=== PATIENT | female | born 1940 | race Caucasian/White ===

== ENCOUNTER → 2017-11-18 | Outpatient (CLI) | payer MEDICARE, BC ==
[~2017-11-18] MED LIST: BISO10TA2 PO; CALC1TAB87 PO; CALC600T34 PO; DICL75TA PO; LATA0.002 LEFT EYE; META28.34 PO; SIMV40TA PO; TAB-TAB PO; TIMO0.5S30 LEFT EYE; WOMETAB PO; ZIAC106.25 PO; ZOCO40TA PO
[2017-11-18 10:06] LABS: AUTOMATED NEUTROPHIL # 5.8 TH/MM3 (1.8-7.7); BASOPHIL # 0.1 TH/MM3 (0-0.2); EOSINOPHIL # 0.2 TH/MM3 (0-0.4); HEMATOCRIT 42.8 % (35.0-46.0); HEMOGLOBIN 14.9 GM/DL (11.6-15.3); LYMPH % 16.9 % (9.0-44.0); LYMPHOCYTE # 1.4 TH/MM3 (1.0-4.8); MEAN CELL VOLUME 95.3 FL (80.0-100.0); MEAN CORPUSCULAR HEMOGLOBIN 33.1 PG (27.0-34.0); MEAN CORPUSCULAR HGB CONC 34.8 % (32.0-36.0); MEAN PLATELET VOLUME 9.1 FL (7.0-11.0); MONO % 9.4 % (0.0-8.0); MONOCYTE # 0.8 TH/MM3 (0-0.9); NEUT % 70.7 % (16.0-70.0); PLATELET COUNT 216 TH/MM3 (150-450); RED BLOOD COUNT 4.49 MIL/MM3 (4.00-5.30); RED CELL DISTRIBUTION WIDTH 13.2 % (11.6-17.2); WHITE BLOOD COUNT 8.3 TH/MM3 (4.0-11.0)
[2017-11-18 10:12] LABS: INTERNATIONAL NORMALIZED RATIO 1.1 RATIO; PROTHROMBIN TIME - PATIENT 10.8 SEC (9.8-11.6)
[2017-11-18 10:13] LABS: BACTERIA, URINE RARE /hpf; BILIRUBIN, URINE NEG (NEG); BLOOD, URINE NEG (NEG); GLUCOSE,URINE NEG (NEG); KETONE, URINE NEG (NEG); MUCUS URINE FEW /lpf (OCC); NITRITE,URINE NEG (NEG); SQUAMOUS EPITHELIAL CELL URINE 1 /hpf (0-5); TRANSITIONAL EPI CELLS, URINE <1 /hpf; URINE COLOR YELLOW (YELLW/STRAW); URINE LEUKOCYTE ESTERASE SMALL (NEG)
[2017-11-18 10:20] LABS: BICARBONATE 29.1 MEQ/L (21.0-32.0); CALCIUM 9.6 MG/DL (8.5-10.1); CREATININE 1.13 MG/DL (0.50-1.00)
--- NOTE | 2017-11-18 18:00 | EKG ---
Date Performed: 11/18/2017 Time Performed: 09:23:49 PTAGE: 77 years EKG: NORMAL Sinus rhythm RIGHT BUNDLE BRANCH BLOCK SECONDARY V POLARIZATION CHANGES ABNORMAL ECG Since PREVIOUS TRACING , no significant change noted PREVIOUS TRACIN07/28/2009 10.54 DOCTOR: Chantell Black Interpretating Date/Time 11/18/2017 17:58:11
== END ==
LOC: CPRE 08:57
PROVIDERS: ATTEND Orthopaedic Surgery
DX: Z01.810 Encounter for preprocedural cardiovascular examination (principal); Z01.812 Encounter for preprocedural laboratory examination; M17.11 Unilateral primary osteoarthritis, right knee; R94.31 Abnormal electrocardiogram [ECG] [EKG]
CPT/HCPCS: 36415; 80048; 81001; 85025; 85610; 87086; 93005

== ENCOUNTER → 2017-11-28 | Outpatient (CLI) | payer MEDICARE, BC ==
[~2017-11-28] MED LIST changes: +ASPI-183 PO; -CALC600T34 PO; +HYDR-3580 PO; -TAB-TAB PO; +WALKER WHEELS/F1 MIS; -ZIAC106.25 PO; -ZOCO40TA PO
[2017-11-28 13:03] LABS: BILIRUBIN, URINE NEG (NEG); BLOOD, URINE TRACE (NEG); GLUCOSE,URINE NEG (NEG); KETONE, URINE NEG (NEG); NITRITE,URINE NEG (NEG); PH, URINE 6.5 (5.0-8.5); SQUAMOUS EPITHELIAL CELL URINE 2 /hpf (0-5); URINE COLOR YELLOW (YELLW/STRAW); URINE LEUKOCYTE ESTERASE TRACE (NEG)
== END ==
LOC: CPRE 11:54
PROVIDERS: ATTEND Orthopaedic Surgery
DX: Z01.812 Encounter for preprocedural laboratory examination (principal); M17.11 Unilateral primary osteoarthritis, right knee
CPT/HCPCS: 81001

== ENCOUNTER 2017-11-29 05:30 | Inpatient (IN) | payer MEDICARE, BC ==
--- NOTE | 2017-11-23 09:18 | MH ---
cc: Buzz Champion MD DATE OF ADMISSION: 11/29/2017 ADMITTING DIAGNOSIS: Tricompartmental osteoarthritis of the right knee; pain, right knee; gait disturbance. HISTORY OF PRESENT ILLNESS: The patient is a 77-year-old white female who has had a rather lengthy history of bilateral knee pain extending back for more than 15 years when she had originally noted the gradual onset of soreness involving both knees unrelated to injury or unusual activity. On or about that time, she did undergo orthopedic evaluation and was diagnosed as having an arthritic condition, for which she was treated with cortisone injection. No further intervention was completed and over the following years, the patient experiencing a waxing and waning of pain about both knees, but did not seek any further disposition. Within the past few years, she became increasingly more symptomatic with pain and during this time, was being followed by her primary care physician who recommended an exercise program. Unfortunately, her symptoms persisted, during which time the patient was utilizing ynvo-hzm-[id number] antiinflammatory medication. She presented to the undersigned physician in February of this past year and at that time, her x-ray studies did reveal the obvious degenerative change, somewhat more pronounced about the medial compartment with near jhhg-dd-ovkj apposition associated with a varus deformity of at least 5 degrees magnitude and secondary involvement of the patellofemoral articulation. Findings and treatment options were reviewed with the patient at that time. She elected to continue with conservative management and was prescribed diclofenac 75 mg twice daily and initiated into a physical therapy program while being followed on an outpatient basis. Her medication was later changed to meloxicam because of a lightheaded sensation that was experienced with the diclofenac, and the patient completed her therapy program and thereafter, conformed to exercises as instructed. She was also encouraged to utilize Aspercreme versus Biofreeze for continued pain management. She returned to the office July describing ongoing pain involving both knees but being somewhat more pronounced on the right side. At that time, additional treatment options were reviewed including consideration for operative intervention that would involve total knee arthroplasty. Emphasis was made regarding the fact that the decision to proceed with any form of operative treatment would be left entirely to the patient's discretion. The patient continued with conservative treatment but became increasingly more symptomatic with pain involving all phases of her daily routine, for which she described considerable discomfort as related to any form of weightbearing activities and becoming somewhat unsteady with her gait requiring not only the assistance of her for support but occasional use of a cane for additional management. When seen in further disposition, her current x-ray studies revealed obvious degenerative change with near azej-ee-mcwj apposition about the medial compartment and secondary involvement of the patellofemoral articulation. Once again, findings and treatment options were reviewed. At that time, the patient felt that she had exhausted all modes of conservative treatment and given the progressive nature of her symptoms as well as her unsteadiness of gait and fear of falling, she felt that she was ready to proceed with surgery as previously discussed. In compliance with her wishes, she has presently been scheduled for admission in order that the above be accomplished. PAST MEDICAL HISTORY, HOSPITALIZATIONS, AND SURGERIES: Have included operative procedure of the right eye, patient being nonspecific in this regard, followed by bilateral cataract excision with intraocular lens implants, section x 3. Her medical illnesses include macular degeneration, hypertension, and elevated cholesterol. CURRENT MEDICATIONS: Diclofenac 75 mg twice daily, bisoprolol 10/6.25 daily, simvastatin 40 mg daily, calcium with vitamin D twice daily, Metamucil p.r.n., timolol 0.5% eyedrops twice daily, and latanoprost 0.005% 1 drop at bedtime. ALLERGIES: THE PATIENT DENIES ANY KNOWN DRUG ALLERGIES. REVIEW OF SYSTEMS: She does wear glasses. Denies headache, seizure, syncope. No sinus congestion or epistaxis. Auditory acuity intact. No tinnitus. No bleeding gums or dysphagia. Denies cough, shortness of breath, or tuberculosis. There is a positive history of pneumonia. No angina. She is medically managed for hypertension. Her appetite is good. Bowel movements are regular. No hepatitis, gallbladder disease, ulcers, or hemorrhoids. No urinary tract infection or kidney stones. No history of fractures. No psychiatric illness. Her remaining review of systems is unremarkable or noncontributory. FAMILY HISTORY: The patient has been for 17 years, this being a second marriage. Her is 77 years of age and described as being in good health. She has 3 sons, indicated to be in good health. Family history is positive for hypertension, heart disease, Alzheimer disease and lymphoma. SOCIAL HISTORY: Patient completed a high school education. She admits to a 50-year use of tobacco, presently averaging less than 1/2 pack per day. Denies ethanol consumption. PHYSICAL EXAMINATION: VITAL SIGNS: Height 5 feet 4 inches, weight 227 pounds. GENERAL: An alert, oriented and responsive 77-year-old white female who sits quietly upon the examination table. No obvious distress. HEAD, EARS, EYES, NOSE, AND THROAT: Pupils are equally round and reactive to light. Extraocular movements full. Sclerae clear. 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 Mucous membranes pink and moist. Pharynx clear. NECK: Supple. Active range of motion with no appreciable pain. Carotid pulse palpable bilaterally. Trachea midline. Thyroid without enlargement. LUNGS: Clear to auscultation and percussion. No CVA tenderness. No discomfort throughout the dorsal lumbar spine. HEART: Regular rhythm. No murmur or gallop. ABDOMEN: Soft, nontender. Bowel sounds present. PELVIC: Per primary care physician. EXTREMITIES: Right knee, no significant swelling or effusion. There is medial joint line tenderness without palpable deformity. A 5-105 degree range of motion with crepitation elicited. Varus orientation. No collateral ligamentous laxity. Apprehension and compression sign negative. Shannan test and drawer sign negative. Pivot shift and Elzbieta sign positive for medial compartment pain. Straight leg raising unremarkable at 80 degrees. 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 NEUROLOGIC: Cranial nerves 2-12 grossly intact. IMPRESSION: Tricompartmental osteoarthritis of the right knee; pain, right knee; gait disturbance. PLAN: Right total knee arthroplasty. The nature of the plan, surgical procedure, the potential complications and risks associated, the expectations of surgery, and the consent form were thoroughly reviewed with the patient in the presence of her prior to admission to the hospital. Dayana has indicated her full understanding regarding all of the above and given her consent to proceed with treatment as outlined. Medical evaluation and clearance for surgery will be completed by her primary care physician at the [facility]. MD RAFA Morrison/SB , 05:42 PM , 06:45 PM JENNIFER
[~2017-11-29] VITALS: Ht 162.6 cm; Wt 102.9 kg
[~2017-11-29 05:30] MED LIST changes: -ASPI-183 PO; -HYDR-3580 PO; -WALKER WHEELS/F1 MIS
[2017-11-29] MEDS ORDERED: FAT EMULSION 20% INJ 0 ML ONE (05:38)
[2017-11-29] MEDS ORDERED: CHLORHEXIDINE GLUCONATE 2 % 1 PACK (2 CLOTHS) TOPICAL PRN (06:00)
[2017-11-29] MEDS ORDERED: SODIUM CHLORID 0.9% 500 ML IV PRN (06:00)
[2017-11-29] MEDS ORDERED: LACTATED RINGER'S 1000 ML IV PRN (06:00)
[2017-11-29] MEDS ORDERED: METOPROLOL TARTRATE 25 MG TAB PO PRN (06:00)
[2017-11-29] MEDS ORDERED: POVIDONE IODINE 5% (ANTISEPSIS KIT) 4 APPLICATIONS EACH NARE PRN (06:00)
[2017-11-29] MEDS ORDERED: ceFAZolin 2 GM PREMIX 50 ML IV SCH (06:00)
[2017-11-29] MEDS ORDERED: POVIDONE IODINE 7.5% SCRUB 118 ML BOTTLE TOPICAL SCH (06:00)
[2017-11-29] MEDS ORDERED: MIDAZOLAM HCL 2 MG/2 ML VIAL ONE (06:09)
[2017-11-29] MEDS ORDERED: ROPIVACAINE 0.5% PF INJ 30 ML VIAL ONE (06:09)
[2017-11-29] MEDS ORDERED: ceFAZolin INJ 1,000 MG VIAL ONE (06:09)
[2017-11-29] MEDS ORDERED: TRANEXAMIC ACID 1 GM PRIOR TO PROCEDURE IV SCH ×2 (07:00)
[2017-11-29] MEDS ORDERED: HYDR-3580 PO (09:29)
[2017-11-29] MEDS ORDERED: ASPI-183 PO (09:29)
[2017-11-29] MEDS ORDERED: diphenhydrAMINE HCL 25 MG CAP PO PRN (09:30)
[2017-11-29] MEDS ORDERED: ONDANSETRON HCL 4 MG/2 ML VIAL IVP PRN (09:30)
[2017-11-29] MEDS ORDERED: MISCELLANEOUS PHARMACY INFORMATION XX ONE (09:30)
[2017-11-29] MEDS ORDERED: NALOXONE HCL 0.4 MG/ML AMP IV PUSH PRN (09:30)
[2017-11-29] MEDS ORDERED: ZOLPIDEM TARTRATE 5 MG TAB PO PRN (09:30)
[2017-11-29] MEDS ORDERED: TRANEXAMIC ACID INJ 1,000 MG in SODIUM CHLORIDE 0.9% INJ 100 ML IV SCH (09:30)
[2017-11-29] MEDS ORDERED: Post-op Orders (for Pharmacy) XX ONE (09:30)
[2017-11-29] MEDS ORDERED: ACETAMINOPHEN 325 MG TAB PO PRN (09:30)
--- NOTE | 2017-11-29 09:31 | HHI.FF ---
Face to Face Verification Diagnosis: (1) DJD (degenerative joint disease) of knee Physical Therapy Gait training Knee: Total knee, Protocol: Right, Full weight bearing Right LE Range of Motion: Active ROM Nursing Dressing Changes: Daily dressing change I have seen patient Dayana Barnett on 11/29/17. My clinical findings support the need for the requested home health care services because: Limited ability to care for self High risk of falls I certify that my clinical findings support that this patient is homebound because: Post-op weakness Unsteady gait/balance Unsafe to leave home unassisted Buzz Champion MD Nov 29, 2017 09:31
[2017-11-29] MEDS ORDERED: WALKER WHEELS/F1 MIS (09:33)
[2017-11-29] MEDS ORDERED: TRANEXAMIC ACID 1 GM POST-OP IV SCH ×2 (10:00)
[2017-11-29] MEDS: DEXT 5%-NACL 0.45% 1000 ML INJ 1,000 ML IV SCH ×2 (10:00→17:23)
[2017-11-29] MEDS: MORPHINE SULFATE 30 MG/30 ML PCA IV SCH (10:00)
--- NOTE | 2017-11-29 10:02 | RADRPT ---
EXAM DATE/TIME: 11/29/2017 09:35 [facility] COMPARISON: No previous studies available for comparison. INDICATIONS : Post op right total knee. MEDICAL HISTORY : None. SURGICAL HISTORY : None. ENCOUNTER: Initial ACUITY: 1 day PAIN SCORE: 2/10 LOCATION: Right Knee FINDINGS: Postsurgical features of right knee arthroplasty. Arthroplasty components are in anatomic alignment. No significant acute bony fracture. Immediate postsurgical soft tissue features. CONCLUSION: 1. Status post right knee arthroplasty in anatomic alignment without significant acute bony fracture. Abdelrahman Tobar MD on November 29, 2017 at 9:59 Board Certified Radiologist. This report was verified electronically.
--- NOTE | 2017-11-29 10:14 | MP ---
cc: Buzz Champion MD DATE OF OPERATION: 11/29/2017 PREOPERATIVE DIAGNOSIS: Tricompartmental osteoarthritis of the right knee, pain right knee, and gait disturbance. POSTOPERATIVE DIAGNOSIS: Tricompartmental osteoarthritis of the right knee, pain right knee, and gait disturbance. PROCEDURE: Right total knee arthroplasty. SURGEON: Buzz Champion MD ANESTHESIA: General endotracheal. INDICATIONS: A 77-year-old white female with a lengthy history of bilateral knee pain extending back at least 15 years when the patient was originally noting the onset of soreness involving both knee unrelated to injury or unusual activity. On or about that time, she did undergo orthopedic evaluation, was diagnosed as having an arthritic condition, for which she was treated with cortisone injections. No further intervention was completed. Over the following years, the patient experienced a waxing and waning of pain of both knees but did not seek any further disposition. Within the past few years, she became increasingly more symptomatic with pain, and during this time was being followed by her primary care physician who recommended an exercise program. Unfortunately, her symptoms persisted, during which time she was utilizing emio-iii-pbbijir antiinflammatory medication. She presented to the undersigned physician in February of this past year, and at that time, her x-ray studies revealed obvious degenerative changes more pronounced about the medial compartment with near mvnx-xg-cliw opposition associated with a varus deformity of at least 5 degrees magnitude and secondary involvement of the patellofemoral articulation. Findings and treatment options were reviewed at that time. The patient elected to continue with conservative management, being prescribed diclofenac 75 mg twice daily and initiated into a physical therapy program, while being followed on outpatient basis. Her medications later changed to meloxicam because of a lightheaded sensation that she was experiencing from previous medication. She completed her therapy program and thereafter, conformed her exercises as instructed and was encouraged to utilize Aspercreme versus BioFreeze for continued pain management. She returned to the office in July of this past year, describing ongoing pain about both knees, somewhat more pronounced on the right side. Additional treatment options were reviewed, including consideration for operative intervention that would involve a total knee arthroplasty. Emphasis was made regarding the fact that the decision to proceed with any form of surgery would be left entirely to the patient's discretion. The patient elected to continue with conservative treatment but became increasingly more symptomatic with pain involving all phases of her daily routine, especially related to weightbearing activities. She was experiencing unsteadiness of her gait that required both cane and her for additional support. When seen in further disposition, her current x-ray studies obvious degenerative changes with near scsd-zb-zytu opposition about the medial compartment and secondary involvement of the patellofemoral articulation. Once again, findings and treatment options were reviewed. At that time, the patient felt that she had exhausted all modes of conservative treatment and given the progressive nature of her symptoms and the unsteadiness of gait and fear of falling, she felt that she was ready to proceed with surgery as previously been discussed. In compliance with her wishes, she was scheduled for admission at this time in order that the above be accomplished. FORMAT: Following the induction of satisfactory general anesthesia by endotracheal intubation as completed per the department of anesthesia, a tourniquet was established around the proximal portion of the right lower extremity. The extremity proper was isolated with a U drape, thereafter being prepped with Betadine solution and draped into a sterile field in the routine manner. Prior to initiation of the actual procedure, the standard timeout protocol was completed. All parameters were appropriately addressed and confirmed by operating room personnel. The extremity was elevated for approximately 1 minute and the tourniquet thus inflated to 250 mmHg pressure. A sharp skin incision was initiated midline over the anterior aspect of the knee and developed through underlying subcutaneous tissue with hemostasis maintained by electrocautery. By deepening dissection, the anterior capsule was exposed, the medial capsulotomy completed, and the patella subluxed in the lateral orientation. Examination of the joint space revealed severe tricompartmental degenerative changes. The articular surface of the patella was resected. Three-hole guide was utilized for establishing post holes. Medial and lateral meniscus structures were sharply excised, as was the anterior cruciate ligament. A centering hole was placed in the distal aspect of the femur allowing positioning of the intramedullary guide. The distal femoral cutting jig was attached and the distal femur resected. AP measurement noted 65 mm sizing to be appropriate. The matching cutting block was positioned. Anterior, posterior and chamfer cuts were completed. The tibial plateau was thereafter subluxed in the anterior orientation allowing positioning of the extramedullary guide. The tibial plateau was resected and measured at 75 mm sizing determined to be satisfactory. A trial reduction followed utilizing a 65 mm anatomic femoral component. A 75 mm tibial base with a 10 mm bearing insert. The knee was readily brought to full extension. There was no laxity to varus/valgus stress at both 0 and 90 degrees flexed posture. Orientation was confirmed as appropriate with measurement of the pelvic eye through the mechanical axis of the knee. A trial reduction followed utilizing a 34 mm standard patellar button. Once again, good tracking demonstrated with no tendency toward subluxation. All trial components being removed, the remaining portion of the proximal tibia was prepared for insertion of the permanent component. The joint space was thoroughly lavaged with pulsating antibiotic solution, hemostasis being maintained by electrocautery. An autogenous bone plug was inserted into the distal femoral guide hole and thereafter, a preparation of Palacos bone cement was utilized and inserting knee components in a sequential fashion, which included a 75 mm fixed cruciate tibial plate, to which a 10 mm Vanguard tibial bearing insert was secured with locking mccarty. The 65 mm Vanguard femoral component was firmly seated onto the distal femur, excess cement being removed. The knee was brought to full extension, and thereafter, the 34 mm standard 3-post patellar button was attached and maintained in place with patellar clamp while cement hardening was completed. Final range of motion assessment noted good tracking and stability throughout the knee. Irrigation was achieved with hemostasis maintained. Autovac drain tubes were inserted through superior stab wounds. The capsule was repaired with 0 Vicryl suture. Remaining portion of the wound was closed in layers in the routine manner, skin margins being reapproximated with a running subcuticular 3-0 Vicryl suture, over which Steri-Strips were applied. Xeroform, gauze and a bulky dry sterile dressing placed. Tourniquet deflated after 48 minutes of tourniquet time. The extremity being supported in a knee splint. Anesthesia was discontinued. The patient thus transferred to a hospital bed and returned to the recovery room in satisfactory condition, having tolerated her operative procedure well. The estimated blood loss approximately 50 mL. 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 MD RAFA Morrison/GUILLERMO , 09:20 AM , 10:13 AM
[2017-11-29] MEDS ORDERED: DO NOT ADM ANY ANTICOAGULANT DRUGS PRN (10:30)
[2017-11-29] MEDS ORDERED: LIDOCAINE HCL 1% PF 5 ML SYRINGE OTHER ONE (12:00)
[2017-11-29] MEDS ORDERED: LACTATED RINGER'S 1000 ML INJ 1,000 ML IV ONE (12:00)
[2017-11-29] MEDS ORDERED: GLYCOPYRROLATE 1 MG/5 ML SYRINGE IV PUSH ONE (12:00)
[2017-11-29] MEDS ORDERED: PROPOFOL 200 MG/20 ML AMP IV ONE (12:00)
[2017-11-29] MEDS ORDERED: DEXAMETHASONE SOD PHOS 4 MG/ML VIAL IV ONE (12:00)
[2017-11-29] MEDS ORDERED: NEOSTIGMINE 5 MG/5 ML SYRINGE IV PUSH ONE (12:00)
[2017-11-29] MEDS ORDERED: ROCURONIUM INJ 50 MG/5 ML SYRINGE IV PUSH ONE (12:00)
[2017-11-29] MEDS ORDERED: ONDANSETRON HCL 4 MG/2 ML VIAL IV ONE (12:00)
--- NOTE | 2017-11-29 12:43 | HHI.PR ---
Objective Vitals Vital Signs Date Time Temp Pulse Resp B/P (MAP) Pulse Ox O2 Delivery O2 Flow Rate FiO2 11/29/17 11:00 97.7 60 16 128/58 (81) 96 Nasal Cannula 2 11/29/17 10:00 15 11/29/17 09:45 62 16 125/59 (81) 96 Nasal Cannula 2 11/29/17 09:30 65 16 122/60 (80) 96 Nasal Cannula 2 11/29/17 09:19 97.9 68 16 135/62 (86) 97 Nasal Cannula 2 I/O 11/28/17 11/28/17 11/28/17 11/29/17 11/29/17 11/29/17 07:00 15:00 23:00 07:00 15:00 23:00 Intake Total 900 ml Output Total 50 ml Balance 850 ml Intake IV Total 900 ml Output Estimated Blood Loss 50 ml Herminia Toledo MD Nov 29, 2017 12:43
--- NOTE | 2017-11-29 12:44 | PD.CONS ---
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 Patient is out of the surgery, eating her lunch doing well pain is tolerable She has a history of hypertension hyperlipidemia 3 and 2 cataract she smoked a few cigarettes a day no alcohol drug abuse, she denied significant family history Currently she denied any chest pain short of breath diarrhea, dysuria urgency frequency, orthopnea or PND Review of Systems All systems reviewed and was positive for what is mentioned in history of present illness otherwise negative Past Family Social History Allergies: Coded Allergies: No Known Allergies (Verified Allergy, Unknown, 08/11/09) Past Medical History As in HPI Past Surgical History As in HPI Family History As in HPI Social History As in HPI Physical Exam Vital Signs Vital Signs Date Time Temp Pulse Resp B/P (MAP) Pulse Ox O2 Delivery O2 Flow Rate FiO2 11/29/17 11:00 97.7 60 16 128/58 (81) 96 Nasal Cannula 2 11/29/17 10:00 15 11/29/17 09:45 62 16 125/59 (81) 96 Nasal Cannula 2 11/29/17 09:30 65 16 122/60 (80) 96 Nasal Cannula 2 11/29/17 09:19 97.9 68 16 135/62 (86) 97 Nasal Cannula 2 Physical Exam GENERAL: This is a well-nourished, well-developed patient, in no apparent distress. SKIN: No rashes, ecchymoses or lesions. Cool and dry. HEAD: Atraumatic. Normocephalic. No temporal or scalp tenderness. EYES: Pupils equal round and reactive. Extraocular motions intact. No scleral icterus. No injection or drainage. ENT: Nose without bleeding, purulent drainage or septal hematoma. Throat without erythema, tonsillar hypertrophy or exudate. Uvula midline. Airway patent. NECK: Trachea midline. No JVD or lymphadenopathy. Supple, nontender, no meningeal signs. CARDIOVASCULAR: Regular rate and rhythm without murmurs, gallops, or rubs. RESPIRATORY: Clear to auscultation. Breath sounds equal bilaterally. No wheezes , rales, or rhonchi. GASTROINTESTINAL: Abdomen soft, non-tender, nondistended. No hepato-splenomegaly , or palpable masses. No guarding. MUSCULOSKELETAL: Extremities without clubbing, cyanosis, or edema. Able to wiggle toes on both lower extremity NEUROLOGICAL: Awake and alert. Normal speech no focal neurological deficit Imaging Last Impressions Knee X-Ray 11/29/17 0923 Signed Impressions: Service Date/Time: Wednesday, November 29, 2017 09:35 - CONCLUSION: 1. Status post right knee arthroplasty in anatomic alignment without significant acute bony fracture. Abdelrahman Tobar MD Assessment and Plan Assessment and Plan 77 years old female admitted for Osteoarthritis status post right total knee arthroplasty: Postop management with pain management DVT prophylaxis per Ortho Hypertension Hyperlipidemia >> continue beta-anali, hydrochlorothiazide, statin from med rec Aspirin to be continued when okay with also DVT prophylaxis on Xarelto for also Discussed Condition With Patient Herminia Toledo MD Nov 29, 2017 12:44
[2017-11-29 13:19] VITALS: BP 127/63; PULSE 95; RESP 18; TEMP 96.5; O2SAT 97
[2017-11-29] MEDS: PCA - TOTAL MG MORPHINE DELIVERED PER SHIFT SCH ×2 (14:00→20:36)
[2017-11-29 16:00] VITALS: BP 115/62; PULSE 70; RESP 18; TEMP 98.4; O2SAT 96
[2017-11-29] MEDS: PRAVASTATIN SOD 80 MG TAB PO SCH (20:35)
[2017-11-29] MEDS: TIMOLOL MALEATE 0.5% OPHT SOLN 5 ML BTL LEFT EYE SCH (20:35)
[2017-11-29] MEDS: LATANOPROST 0.005% OPHT SOLN 2.5 ML BTL LEFT EYE SCH (20:36)
[2017-11-29 21:31] VITALS: BP 134/65; PULSE 82; RESP 17; TEMP 99.6; O2SAT 96
[2017-11-29 23:57] VITALS: BP 136/71; PULSE 80; RESP 17; TEMP 99; O2SAT 96
[2017-11-30] MEDS: DEXT 5%-NACL 0.45% 1000 ML INJ 1,000 ML IV SCH ×3 (01:23→17:23)
[2017-11-30 04:50] VITALS: BP 136/56; PULSE 80; RESP 17; TEMP 98.9; O2SAT 97
[2017-11-30 05:25] LABS: HEMATOCRIT 36.8 % (35.0-46.0); HEMOGLOBIN 12.6 GM/DL (11.6-15.3)
[2017-11-30] MEDS: PCA - TOTAL MG MORPHINE DELIVERED PER SHIFT SCH ×3 (05:50→22:00)
[2017-11-30 08:00] VITALS: BP 126/57; PULSE 80; RESP 18; TEMP 97.2; O2SAT 95
[2017-11-30] MEDS: RIVAROXABAN 10 MG TAB PO SCH (08:06)
[2017-11-30] MEDS: TIMOLOL MALEATE 0.5% OPHT SOLN 5 ML BTL LEFT EYE SCH ×2 (08:06→21:00)
[2017-11-30] MEDS: BISOPROLOL PO SCH (08:07)
[2017-11-30] MEDS: HYDROCHLOROTHIAZIDE PO SCH (08:07)
[2017-11-30] MEDS: MORPHINE SULFATE 30 MG/30 ML PCA IV SCH (08:17)
[2017-11-30] MEDS ORDERED: HYDROCHLOROTHIAZIDE PO SCH (09:00)
[2017-11-30] MEDS ORDERED: BISOPROLOL PO SCH (09:00)
[2017-11-30 12:00] VITALS: BP 110/58; PULSE 69; RESP 18; TEMP 98.7; O2SAT 97
[2017-11-30 16:00] VITALS: BP 123/51; PULSE 76; RESP 18; TEMP 99; O2SAT 94
[2017-11-30 20:55] VITALS: BP 125/56; PULSE 84; RESP 17; TEMP 99.3; O2SAT 94
[2017-11-30] MEDS: LATANOPROST 0.005% OPHT SOLN 2.5 ML BTL LEFT EYE SCH (21:00)
[2017-11-30] MEDS: DOCUSATE SODIUM 100 MG CAP PO PRN (22:04)
[2017-11-30] MEDS: PRAVASTATIN SOD 80 MG TAB PO SCH (22:04)
[2017-11-30] MEDS: ACETAMINOPHEN/HYDROcodone 325 MG/5 MG TAB PO PRN (22:04)
[2017-12-01 00:20] VITALS: BP 116/55; PULSE 81; RESP 17; TEMP 99.4; O2SAT 93
[2017-12-01] MEDS: DEXT 5%-NACL 0.45% 1000 ML INJ 1,000 ML IV SCH ×4 (01:23→20:57)
[2017-12-01 03:50] VITALS: BP 124/56; PULSE 79; RESP 17; TEMP 98.6; O2SAT 94
[2017-12-01 04:47] LABS: AUTOMATED NEUTROPHIL # 6.9 TH/MM3 (1.8-7.7); BASOPHIL # 0.1 TH/MM3 (0-0.2); BASOPHIL % 0.9 % (0.0-2.0); EOSINOPHIL % 0.4 % (0.0-4.0); HEMATOCRIT 33.6 % (35.0-46.0); HEMOGLOBIN 11.6 GM/DL (11.6-15.3); LYMPH % 16.7 % (9.0-44.0); LYMPHOCYTE # 1.7 TH/MM3 (1.0-4.8); MEAN CELL VOLUME 95.6 FL (80.0-100.0); MEAN CORPUSCULAR HGB CONC 34.5 % (32.0-36.0); MEAN PLATELET VOLUME 8.6 FL (7.0-11.0); MONO % 12.4 % (0.0-8.0); MONOCYTE # 1.2 TH/MM3 (0-0.9); NEUT % 69.6 % (16.0-70.0); PLATELET COUNT 185 TH/MM3 (150-450); RED BLOOD COUNT 3.51 MIL/MM3 (4.00-5.30); RED CELL DISTRIBUTION WIDTH 12.9 % (11.6-17.2); WHITE BLOOD COUNT 9.9 TH/MM3 (4.0-11.0)
[2017-12-01 05:11] LABS: BICARBONATE 28.6 MEQ/L (21.0-32.0); CALCIUM 8.4 MG/DL (8.5-10.1); CREATININE 1.02 MG/DL (0.50-1.00)
[2017-12-01] MEDS: ACETAMINOPHEN/HYDROcodone 325 MG/5 MG TAB PO PRN ×3 (05:47→17:40)
[2017-12-01] MEDS: PCA - TOTAL MG MORPHINE DELIVERED PER SHIFT SCH (06:00)
[2017-12-01] MEDS: MORPHINE SULFATE 30 MG/30 ML PCA IV SCH (06:27)
[2017-12-01 08:00] VITALS: BP 127/57; PULSE 89; RESP 18; TEMP 98.3; O2SAT 93
[2017-12-01] MEDS: RIVAROXABAN 10 MG TAB PO SCH (08:25)
[2017-12-01] MEDS: DOCUSATE SODIUM 100 MG CAP PO PRN (08:25)
[2017-12-01] MEDS: TIMOLOL MALEATE 0.5% OPHT SOLN 5 ML BTL LEFT EYE SCH ×2 (08:26→20:57)
[2017-12-01] MEDS: BISOPROLOL PO SCH (08:28)
[2017-12-01] MEDS: HYDROCHLOROTHIAZIDE PO SCH (08:28)
[2017-12-01 11:36] VITALS: BP 106/50; PULSE 71; RESP 18; TEMP 98.5; O2SAT 95
[2017-12-01 14:41] VITALS: BP 140/66; PULSE 77; RESP 18; TEMP 96; O2SAT 98
--- NOTE | 2017-12-01 16:58 | HHI.PR ---
Subjective Remarks Patient stated she had pain last night at this better now Afebrile no acute complain now Objective Vitals Vital Signs Date Time Temp Pulse Resp B/P (MAP) Pulse Ox O2 Delivery O2 Flow Rate FiO2 12/01/17 14:41 96.0 77 18 140/66 (90) 98 12/01/17 12:52 18 12/01/17 11:36 98.5 71 18 106/50 (68) 95 12/01/17 08:00 98.3 89 18 127/57 (80) 93 12/01/17 06:58 18 12/01/17 06:27 18 12/01/17 06:00 18 12/01/17 03:50 98.6 79 17 124/56 (78) 94 12/01/17 00:20 99.4 81 17 116/55 (75) 93 11/30/17 23:24 Room Air 11/30/17 22:00 18 11/30/17 20:55 99.3 84 17 125/56 (79) 94 I/O 11/30/17 11/30/17 11/30/17 12/01/17 12/01/17 12/01/17 07:00 15:00 23:00 07:00 15:00 23:00 Intake Total 240 ml 960 ml 640 ml 960 ml Output Total 30 ml 150 ml 30 ml Balance 210 ml 960 ml -150 ml 610 ml 960 ml Intake Oral 240 ml 960 ml 640 ml 960 ml Output Drainage Total 30 ml 150 ml 30 ml # Voids 0 3 2 3 # Bowel Movements 0 0 0 0 Result Diagram: 12/01/17 0422 12/01/17 0422 Objective Remarks GENERAL: This is a well-nourished, well-developed patient, in no apparent distress. CARDIOVASCULAR: Regular rate and rhythm without murmurs, gallops, or rubs. RESPIRATORY: Clear to auscultation. Breath sounds equal bilaterally. No wheezes , rales, or rhonchi. GASTROINTESTINAL: Abdomen soft, non-tender, nondistended. Normal active bowel sounds MUSCULOSKELETAL: Extremities without clubbing, cyanosis, or edema. NEURO: Alert & Oriented x4 to person, place, time, situation. Moves all ext x4 A/P Assessment and Plan 77 years old female admitted for Osteoarthritis status post right total knee arthroplasty: Postop management with pain management DVT prophylaxis per Ortho Hypertension Hyperlipidemia >> continue beta-anali, hydrochlorothiazide, statin from med rec Aspirin to be continued when okay with also DVT prophylaxis on Xarelto for also 12/01: Increased creatinine , possible CKD, versus MESERET, repeat BMP in a.m. continue hydration and avoid nephrotoxins Continue pain management monitor temperature, follow with, Ortho Herminia Toledo MD Dec 01, 2017 16:58
[2017-12-01 20:00] VITALS: BP 117/58; PULSE 74; RESP 15; TEMP 100.1; O2SAT 96
[2017-12-01] MEDS: LATANOPROST 0.005% OPHT SOLN 2.5 ML BTL LEFT EYE SCH (20:57)
[2017-12-01] MEDS: PRAVASTATIN SOD 80 MG TAB PO SCH (20:57)
[2017-12-01] MEDS: LACTULOSE SYRUP 20 GM/30 ML CUP PO PRN (20:57)
[2017-12-02] VITALS: BP 118/59; PULSE 66; RESP 18; TEMP 97.1; O2SAT 94
--- NOTE | 2017-12-02 07:01 | MD ---
cc: Buzz Champion MD [facility] DATE OF DISCHARGE: 12/02/2017 ADMITTING DIAGNOSIS: Tricompartmental osteoarthritis of the right knee, pain right knee and gait disturbance. DISCHARGE DIAGNOSIS: Tricompartmental osteoarthritis of the right knee, pain right knee and gait disturbance. HISTORY: A 77-year-old white female with a lengthy history of bilateral knee pain extending back for more than 15 years when she had originally noted the gradual onset of soreness involving both knees unrelated to injury or unusual activity. On or about that time, she did undergo orthopedic evaluation and was diagnosed as having an arthritic condition for which she was treated with cortisone injections. No further intervention was completed and over the following years, the patient experienced a waxing and waning pain about both knees, but did not seek any further disposition. Within the past few years, she became increasingly more symptomatic with pain and during this time was being followed by her primary care physician who recommended an exercise program. Unfortunately, her symptoms persisted during which time the patient was utilizing [id number] anti-inflammatory medication. She presented to the undersigned physician in February of this past year and at that time her x-ray studies revealed obvious degenerative change somewhat more pronounced about the medial compartment with near [id number] apposition associated with a varus deformity of at least 5 degrees magnitude and secondary involvement of the patellofemoral articulation. Findings and treatment options were reviewed with the patient at that time, she elected to continue with conservative management and was prescribed Diclofenac 75 mg twice daily and initiated into a physical therapy program while being followed on an outpatient basis. Her medication was later changed to meloxicam because of a lightheaded sensation. She completed her therapy program and thereafter conformed to exercises as instructed. She was also encouraged to utilize Aspercreme versus Biofreeze for continued pain management. She returned to the office in July describing ongoing pain involving both knees being more pronounced about the right side. At that time, additional treatment options were reviewed including consideration for operative intervention that would involve a total knee arthroplasty. Emphasis was made regarding the fact that the decision to proceed with any form of operative treatment would be left entirely to the patient's discretion. The patient continued with conservative management while becoming increasingly more symptomatic with pain involving all phases of her daily routine, for which she described considerable difficulty, conforming to any weight-bearing activities becoming somewhat unsteady with her gait requiring not only the assistance of her for support, but occasional use of a cane as an additional source of management. When seen in further disposition, her current x-ray studies revealed obvious degenerative change with near [id number] apposition about the medial compartment and secondary involvement of the patellofemoral articulation. Once again, findings and treatment options were reviewed. At that time, the patient felt that she had exhausted all modes of conservative treatment and given the progressive nature of her symptoms and her unsteadiness of gait and a fear of falling, she felt she was ready to proceed with surgery as previously discussed. In compliance with her wishes, she was scheduled for admission at this time in order that the above be accomplished. Her physical examination at the time of admission revealed no significant swelling or effusion about the right knee. There was medial joint line tenderness without palpable deformity at 5-105 degree range of motion with crepitation elicited varus orientation. No collateral ligamentous laxity. Apprehension and compression sign negative. Shannan test and drawer sign negative. Pivot shift and Elzbieta sign positive for medial compartment pain. Straight leg raising unremarkable at 80 degrees. 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 HOSPITAL COURSE: Prior to admission to the hospital, the patient had undergone medical evaluation and clearance for surgery as completed by her primary care physician at the [facility]. She was taken to the operating room 11/29/2017 and on that date underwent a right total knee arthroplasty completed in an uncomplicated manner. The patient was noted to have tolerated her operative procedure well. Her postoperative course stable thereafter. Hemoglobin and hematocrit assessment on the second postoperative day was 11.6 and 33.6 respectively. The patient was progressively mobilized under the guidance of physical therapy being permitted weightbearing to tolerance about the right lower extremity. Followup examination of her surgical wound noted to be intact, healing favorably, no evidence of infection. MEDICAL FOLLOWUP: Per the hospitalist service. DVT prophylaxis initiated. Clinical Product Manager consulted to assist with discharge planning. The patient had indicated her willingness to be transferred to a rehab facility for continued mobilization. Plans were finalized in this regard and pending medical clearance, she was scheduled for transfer on the third postoperative day at which time she was noted to be making slow but steady progress with regard to her rehabilitation program. She was scheduled to be seen in office followup in approximately 4 weeks. CONDITION AT THE TIME OF DISCHARGE: Stable. PROGNOSIS: Favorable. DISCHARGE MEDICATIONS: Included hydrocodone #60; aspirin 325 mg 1 tab twice daily for 3 weeks, #40. MD RAFA Morrison/DL , 06:21 AM , 07:00 AM
[2017-12-02 08:00] VITALS: BP 128/54; PULSE 74; RESP 16; TEMP 96.7; O2SAT 94
[2017-12-02] MEDS: LACTULOSE SYRUP 20 GM/30 ML CUP PO PRN (08:36)
[2017-12-02] MEDS: HYDROCHLOROTHIAZIDE PO SCH (08:37)
[2017-12-02] MEDS: RIVAROXABAN 10 MG TAB PO SCH (08:37)
[2017-12-02] MEDS: BISOPROLOL PO SCH (08:37)
[2017-12-02] MEDS: ACETAMINOPHEN/HYDROcodone 325 MG/5 MG TAB PO PRN ×2 (08:37→14:04)
[2017-12-02] MEDS: DEXT 5%-NACL 0.45% 1000 ML INJ 1,000 ML IV SCH (08:37)
[2017-12-02] MEDS: TIMOLOL MALEATE 0.5% OPHT SOLN 5 ML BTL LEFT EYE SCH (08:39)
[2017-12-02] MEDS ORDERED: BISACODYL 10 MG SUPP RECTAL ONE (10:00)
--- NOTE | 2017-12-02 11:21 | HHI.PR ---
Subjective Remarks stable , in nad plan for dc today Objective Vitals Vital Signs Date Time Temp Pulse Resp B/P (MAP) Pulse Ox O2 Delivery O2 Flow Rate FiO2 12/02/17 09:41 18 12/02/17 00:00 97.1 66 18 118/59 (78) 94 12/01/17 23:04 Room Air 12/01/17 20:00 100.1 74 15 117/58 (77) 96 12/01/17 14:41 96.0 77 18 140/66 (90) 98 12/01/17 12:52 18 12/01/17 11:36 98.5 71 18 106/50 (68) 95 I/O 12/01/17 12/01/17 12/01/17 12/02/17 12/02/17 12/02/17 07:00 15:00 23:00 07:00 15:00 23:00 Intake Total 640 ml 960 ml 360 ml Output Total 30 ml Balance 610 ml 960 ml 360 ml Intake Oral 640 ml 960 ml 360 ml Output Drainage Total 30 ml # Voids 2 3 1 1 # Bowel Movements 0 0 0 Result Diagram: 12/01/17 [id number]/[id number] Objective Remarks GENERAL: This is a well-nourished, well-developed patient, in no apparent distress. CARDIOVASCULAR: Regular rate and rhythm without murmurs, gallops, or rubs. RESPIRATORY: Clear to auscultation. Breath sounds equal bilaterally. No wheezes , rales, or rhonchi. GASTROINTESTINAL: Abdomen soft, non-tender, nondistended. Normal active bowel sounds MUSCULOSKELETAL: Extremities without clubbing, cyanosis, or edema. NEURO: Alert & Oriented x4 to person, place, time, situation. Moves all ext x4 A/P Assessment and Plan 77 years old female admitted for Osteoarthritis status post right total knee arthroplasty: Postop management with pain management DVT prophylaxis per Ortho Hypertension Hyperlipidemia >> continue beta-anali, hydrochlorothiazide, statin from med rec Aspirin to be continued when okay with also DVT prophylaxis on Xarelto for also 12/01: Increased creatinine , possible CKD, versus MESERET, repeat BMP in a.m. continue hydration and avoid nephrotoxins Continue pain management monitor temperature, follow with, Ortho 12/02: stable medically for dc and ff with pcp outpt Herminia Toledo MD Dec 02, 2017 11:21
[2017-12-02 12:00] VITALS: BP 116/50; PULSE 67; RESP 16; TEMP 97.9; O2SAT 94
[2017-12-02 15:04] VITALS: RESP 18
== END 2017-12-02 15:41 | DRG 470 ==
LOC: HSDI 05:30 → N06B 13:24
PROVIDERS: ADMIT Orthopaedic Surgery; ATTEND Orthopaedic Surgery
PROC: 0SRC0J9 Replacement of Right Knee Joint with Synthetic Substitute, Cemented, Open Approach (ICD-10-PCS; principal; 2017-11-29 06:44)
DX: M17.11 Unilateral primary osteoarthritis, right knee (principal); I10 Essential (primary) hypertension; E78.5 Hyperlipidemia, unspecified; G89.29 Other chronic pain; R26.81 Unsteadiness on feet; N28.9 Disorder of kidney and ureter, unspecified; H35.30 Unspecified macular degeneration; F17.210 Nicotine dependence, cigarettes, uncomplicated; Z01.812 Encounter for preprocedural laboratory examination
CPT/HCPCS: 36430; 73560; 80048; 81001; 85014; 85018; 85025; 86850; 86900; 86901; 88305; C1776; J0690; J1100; J2250; J2270; J2405; J2710; J2795; J3010; J7120; L1830

== ENCOUNTER → 2018-01-11 | Outpatient (CLI) | payer MEDICARE, BC ==
[~2018-01-11] MED LIST changes: +ASPI-183 PO; +CIPR250T52 PO; +CULT10CA4 PO; +HYDR-3516 PO; +HYDR-3580 PO; +WALKER WHEELS/F1 MIS; +WHEEMIS3; +ZANA2CAP PO
[2018-01-11 09:59] LABS: AUTOMATED NEUTROPHIL # 5.8 TH/MM3 (1.8-7.7); BASOPHIL # 0.1 TH/MM3 (0-0.2); BASOPHIL % 0.8 % (0.0-2.0); EOSINOPHIL # 0.2 TH/MM3 (0-0.4); EOSINOPHIL % 2.2 % (0.0-4.0); HEMATOCRIT 37.5 % (35.0-46.0); HEMOGLOBIN 12.7 GM/DL (11.6-15.3); LYMPH % 18.8 % (9.0-44.0); LYMPHOCYTE # 1.5 TH/MM3 (1.0-4.8); MEAN CELL VOLUME 95.6 FL (80.0-100.0); MEAN CORPUSCULAR HEMOGLOBIN 32.3 PG (27.0-34.0); MEAN CORPUSCULAR HGB CONC 33.8 % (32.0-36.0); MEAN PLATELET VOLUME 9.3 FL (7.0-11.0); MONO % 7.8 % (0.0-8.0); MONOCYTE # 0.6 TH/MM3 (0-0.9); NEUT % 70.4 % (16.0-70.0); PLATELET COUNT 312 TH/MM3 (150-450); RED BLOOD COUNT 3.93 MIL/MM3 (4.00-5.30); RED CELL DISTRIBUTION WIDTH 13.4 % (11.6-17.2); WHITE BLOOD COUNT 8.2 TH/MM3 (4.0-11.0)
[2018-01-11 10:09] LABS: INTERNATIONAL NORMALIZED RATIO 1.1 RATIO; PROTHROMBIN TIME - PATIENT 11.4 SEC (9.8-11.6)
[2018-01-11 10:49] LABS: ALBUMIN 2.9 GM/DL (3.4-5.0); AST (GOT) 20 U/L (15-37); BICARBONATE 32.1 MEQ/L (21.0-32.0); BLOOD UREA NITROGEN 30 MG/DL (7-18); CALCIUM 8.8 MG/DL (8.5-10.1); CHLORIDE 104 MEQ/L (98-107); CREATININE 1.27 MG/DL (0.50-1.00); GLOMERULAR FILTRATION RATE 41 ML/MIN (>89); GLUCOSE,FASTING 108 MG/DL (74-99); SODIUM (NA) 143 MEQ/L (136-145)
[2018-01-11 10:51] LABS: ALT (GPT) 15 U/L (10-53)
[2018-01-11 10:54] LABS: ALKALINE PHOSPHATASE 83 U/L (45-117); TOTAL BILIRUBIN ADULT 0.8 MG/DL (0.2-1.0); TOTAL PROTEIN 6.2 GM/DL (6.4-8.2)
[2018-01-11 11:06] LABS: BACTERIA, URINE OCC /hpf; BILIRUBIN, URINE NEG (NEG); BLOOD, URINE NEG (NEG); GLUCOSE,URINE NEG (NEG); KETONE, URINE NEG (NEG); MUCUS URINE FEW /lpf (OCC); NITRITE,URINE NEG (NEG); PH, URINE 6.5 (5.0-8.5); SQUAMOUS EPITHELIAL CELL URINE 4 /hpf (0-5); URINE COLOR YELLOW (YELLW/STRAW); URINE LEUKOCYTE ESTERASE SMALL (NEG)
== END ==
LOC: CPRE 09:00
PROVIDERS: ATTEND Neurological Surgery
DX: Z01.812 Encounter for preprocedural laboratory examination (principal); Z01.818 Encounter for other preprocedural examination; T14.8XXA Other injury of unspecified body region, initial encounter; B95.2 Enterococcus as the cause of diseases classified elsewhere; B96.20 Unspecified Escherichia coli [E. coli] as the cause of diseases classified elsewhere; R82.90 Unspecified abnormal findings in urine; X58.XXXA Exposure to other specified factors, initial encounter
CPT/HCPCS: 36415; 80053; 81001; 85025; 85610; 85730; 87077; 87086; 87186; 87640; 87641

== ENCOUNTER 2018-01-18 06:28 | Inpatient (IN) | payer MEDICARE, BC ==
[~2018-01-18] VITALS: Ht 162.6 cm; Wt 103.9 kg
[~2018-01-18 06:28] MED LIST changes: -CIPR250T52 PO; -CULT10CA4 PO; -HYDR-3516 PO; -HYDR-3580 PO; -ZANA2CAP PO
[2018-01-18] MEDS ORDERED: THROMBIN (TOPICAL) 5,000 UNIT VIAL ONE ×2 (07:16→11:12)
[2018-01-18] MEDS ORDERED: GENTAMICIN SULFATE 80 MG/2 ML VIAL ONE (07:17)
[2018-01-18] MEDS ORDERED: GELFOAM SIZE 100 ONE (07:17)
[2018-01-18] MEDS ORDERED: CHLORHEXIDINE GLUCONATE 2 % 1 PACK (2 CLOTHS) TOPICAL PRN (07:30)
[2018-01-18] MEDS ORDERED: POVIDONE IODINE 5% (ANTISEPSIS KIT) 4 APPLICATIONS EACH NARE PRN (07:30)
[2018-01-18] MEDS ORDERED: METOPROLOL TARTRATE 25 MG TAB PO PRN (07:30)
[2018-01-18] MEDS ORDERED: VANCOMYCIN 1 GM/200 ML PREMIX ON-CALL IV SCH (07:30)
[2018-01-18] MEDS ORDERED: SODIUM CHLORID 0.9% 500 ML IV PRN (07:30)
[2018-01-18] MEDS ORDERED: LACTATED RINGER'S 1000 ML IV PRN (07:30)
[2018-01-18] MEDS ORDERED: VANCOMYCIN HCL 1000 MG VIAL ONE (07:42)
[2018-01-18] MEDS ORDERED: SODIUM CHLOR 0.9% 250 ML INJ 250 ML ONE (07:42)
[2018-01-18] MEDS ORDERED: CIPR250T52 PO (07:50)
[2018-01-18] MEDS ORDERED: CULT10CA4 PO (07:50)
[2018-01-18] MEDS ORDERED: ZANA2CAP PO (07:50)
[2018-01-18 07:56] LABS: BILIRUBIN, URINE NEG (NEG); BLOOD, URINE NEG (NEG); CALCIUM OXALATE CRYSTALS,URINE RARE /hpf; GLUCOSE,URINE NEG (NEG); KETONE, URINE NEG (NEG); MUCUS URINE FEW /lpf (OCC); NITRITE,URINE NEG (NEG); PH, URINE 6.5 (5.0-8.5); SQUAMOUS EPITHELIAL CELL URINE 5 /hpf (0-5); URINE COLOR YELLOW (YELLW/STRAW); URINE LEUKOCYTE ESTERASE SMALL (NEG)
[2018-01-18] MEDS: SODIUM CHLOR 0.9% 1000 ML INJ 1,000 ML IV SCH ×3 (08:00→19:49)
[2018-01-18] MEDS ORDERED: ceFAZolin 2 GM PREMIX 50 ML ONE (08:42)
[2018-01-18] MEDS ORDERED: ARTIFICIAL TEARS OPTH OINT 3.5 APPLIC/3.5 GM TUBO ONE (08:43)
[2018-01-18] MEDS ORDERED: POTASSIUM CHLOR 20 MEQ PREMIX 100 ML ONE (09:15)
[2018-01-18] MEDS ORDERED: ACETAMINOPHEN 325 MG TAB PO PRN (10:00)
[2018-01-18] MEDS ORDERED: MENTHOL LOZENGE BUCCAL PRN (10:00)
[2018-01-18] MEDS ORDERED: MORPHINE SULFATE 4 MG/ML INJ IV PUSH PRN ×2 (10:00)
[2018-01-18] MEDS ORDERED: cloNIDine HCL 0.1 MG TAB PO/NG PRN (10:00)
[2018-01-18] MEDS ORDERED: CYCLOBENZAPRINE HCL 10 MG TAB PO PRN (10:00)
[2018-01-18] MEDS ORDERED: PSYLLIUM HUSK SF 3.4 GM in 5.8 GM PKT PO PRN (10:00)
[2018-01-18] MEDS ORDERED: DEXTROSE 50% IN WATER 50 ML VIAL(D50) IV PUSH PRN (10:00)
[2018-01-18] MEDS ORDERED: ONDANSETRON HCL 4 MG/2 ML VIAL IV PRN (10:00)
[2018-01-18] MEDS ORDERED: ACETAMINOPHEN/HYDROcodone 325 MG/10 MG TAB PO PRN ×2 (10:00)
[2018-01-18] MEDS ORDERED: RESP: ALBUTEROL 2.5 MG/3 ML NEB (PRN) INH (10:00)
[2018-01-18] MEDS: DEXAMETHASONE SOD PHOS 4 MG/ML VIAL IV PUSH SCH ×3 (10:00→21:18)
[2018-01-18] MEDS ORDERED: GLUCAGON 1 MG/ML VIAL OTHER PRN (10:00)
[2018-01-18] MEDS ORDERED: BISACODYL 10 MG SUPP RECTAL PRN (10:00)
[2018-01-18] MEDS ORDERED: MAGNESIUM HYDROXIDE SUSP 30 ML CUP PO PRN (10:00)
[2018-01-18] MEDS ORDERED: MIDAZOLAM HCL 2 MG/2 ML VIAL ONE (10:45)
[2018-01-18] MEDS ORDERED: KETAMINE HCL 500 MG/10 ML VIAL ONE (10:45)
[2018-01-18] MEDS ORDERED: PROPOFOL 500 MG/50 ML INJ 100 ML ONE (10:45)
[2018-01-18] MEDS ORDERED: ceFAZolin INJ 1,000 MG VIAL IV ONE (11:04)
[2018-01-18] MEDS ORDERED: GELATIN POWDER 1 GM PACKET ONE (11:12)
[2018-01-18] MEDS ORDERED: ONDANSETRON HCL 4 MG/2 ML VIAL IV ONE (12:00)
[2018-01-18] MEDS ORDERED: PHENYLEPH/NS 1000 MCG/10 ML SYR IV ONE (12:00)
[2018-01-18] MEDS ORDERED: LIDOCAINE HCL 1% PF 5 ML SYRINGE OTHER ONE (12:00)
[2018-01-18] MEDS ORDERED: DEXAMETHASONE SOD PHOS 4 MG/ML VIAL IV ONE (12:00)
[2018-01-18] MEDS ORDERED: ePHEDrine/NS 25 MG/5 ML SYRINGE IV ONE (12:00)
[2018-01-18] MEDS ORDERED: SODIUM CHLORID 0.9% 500 ML INJ 500 ML IV ONE (12:00)
[2018-01-18] MEDS ORDERED: LACTATED RINGER'S 1000 ML INJ 2,000 ML IV ONE (12:00)
[2018-01-18] MEDS ORDERED: PHENYLEPHRINE HCL 10 MG/ML VIAL IV ONE (12:00)
[2018-01-18] MEDS ORDERED: ROCURONIUM INJ 50 MG/5 ML SYRINGE IV PUSH ONE (12:00)
[2018-01-18] MEDS ORDERED: PROPOFOL 200 MG/20 ML AMP IV ONE (12:00)
[2018-01-18] MEDS ORDERED: DO NOT ADM ANY ANTICOAGULANT DRUGS PRN (13:55)
[2018-01-18] MEDS ORDERED: ceFAZolin 2 GM PREMIX 50 ML IV SCH ×2 (14:00→18:00)
--- NOTE | 2018-01-18 14:09 | RADRPT ---
EXAM DATE/TIME: 01/18/2018 10:00 [place] COMPARISON: No previous studies available for comparison. INDICATIONS : C3-C5 ACDF. Neck pain. MEDICAL HISTORY : None. SURGICAL HISTORY : None. ENCOUNTER: Initial ACUITY: 1 day PAIN SCORE: Non-responsive. LOCATION: Bilateral cspine FINDINGS: Status post anterior cervical fusion from C3-C5.. There is good alignment of the fusion. CONCLUSION: Good position and alignment on this postoperative study. Damian Han MD on January 18, 2018 at 14:07 Board Certified Radiologist. This report was verified electronically.
--- NOTE | 2018-01-18 15:13 | PD.CONS ---
[facility] Service Critical Care Medicine Consult Requested By Dr. Coles Reason for Consult medical management Primary Care Physician Antione Parr MD History of Present Illness 77-year-old female with severe degenerative changes of cervical spine at C3-C4 level with severe spinal stenosis with appropriate spinal cord compression/ central cord syndrome/cervical myelopathy who underwent a C4 corpectomy with C3- C5 interbody arthrodesis using peek cage with autologous bone graft/ACDF under general anesthesia by Dr. Coles on 01/18/18, received 2 L crystalloid intraoperatively. Patient tolerated procedure well and was subsequently extubated and transferred to PACU. Critical care consult was requested for medical management by Dr. Coles. When I evaluated patient and back issues resting comfortably not in any acute distress. History was obtained by reviewing records and discussion with PACU nursing staff. Review of Systems ROS Limitations: Clinical Condition (Patient drowsy following anesthesia) Past Family Social History Allergies: Coded Allergies: No Known Allergies (Verified Allergy, Unknown, 01/11/18) Past Medical History Hypertension, hyperlipidemia, DVT, osteoarthritis, anxiety, depression, arthritis, melanoma of skin Past Surgical History Cataract surgery, 3 C-sections, melanoma removal, status post right total knee arthroplasty in November 2017 Reported Medications Bisoprolol/HCTZ 10/6.25 mg daily, diclofenac sodium 75 mg delayed release, meloxicam 15 mg, simvastatin 40 mg p.o. daily, Bactrim 800/160 twice daily Active Ordered Medications Current Medications Thrombin (Thrombin Top Soln) 10,000 units STK-MED ONCE .ROUTE Last administered on 01/18/18at 10:30; Start 01/18/18 at 07:16; Stop 01/18/18 at 07:17; Status DC Gelatin (Gelfoam 100 Top) 1 foam STK-MED ONCE .ROUTE Last administered on at 10:30; Start 01/18/18 at 07:17; Stop 01/18/18 at 07:18; Status DC Gentamicin Sulfate (Gentamicin Inj) 240 mg STK-MED ONCE .ROUTE Last administered on 01/18/18at 10:30; Start 01/18/18 at 07:17; Stop 01/18/18 at 07:18; Status DC Lactated Ringer's 1,000 ml @ 30 mls/hr Q24H PRN IV SEE LABEL COMMENTS Last administered on 01/18/18at 07:54; Start 01/18/18 at 07:30; Stop 01/21/18 at 07:29 Sodium Chloride 500 ml @ 30 mls/hr [id number] PRN IV SEE LABEL COMMENTS; Start 01/18/18 at 07:30; Stop 01/21/18 at 07:29 Metoprolol Tartrate (Lopressor) 25 mg LAW LIBRARIAN PRN PO SEE LABEL COMMENTS; Start 01/18/18 at 07:30; Stop 01/21/18 at 07:29 Povidone Iodine (Betadine 5% Antisepsis Kit) 1 applic LAW LIBRARIAN PRN EACH NARE SEE LABEL COMMENTS; Start 01/18/18 at 07:30; Stop 01/21/18 at 07:29 Chlorhexidine Gluconate (Chlorhexidine 2% Cloth) 3 pack LAW LIBRARIAN PRN TOPICAL SEE LABEL COMMENTS Last administered on 01/18/18at 07:00; Start 01/18/18 at 07:30; Stop 01/21/18 at 07:29 Vancomycin/Sodium Chloride 200 ml @ 200 mls/hr LAW LIBRARIAN IV Last administered on 01/18/18at 07:56; Start 01/18/18 at 07:30; Stop 01/21/18 at 07:29 Sodium Chloride 1,000 ml @ 30 mls/hr Q24H IV ; Start 01/18/18 at 08:00 Sodium Chloride 250 ml @ As Directed STK-MED ONCE .ROUTE ; Start 01/18/18 at 07: 42; Stop 01/18/18 at 07:43; Status DC Vancomycin HCl (Vancomycin Inj) 1,000 mg STK-MED ONCE .ROUTE ; Start 01/18/18 at 07:42; Stop 01/18/18 at 07:43; Status DC Cefazolin Sodium/ Dextrose 50 ml @ As Directed STK-MED ONCE .ROUTE ; Start at 08:42; Stop 01/18/18 at 08:43; Status DC Artificial Tears (Lacrilube Opht Oint) 3.5 applic STK-MED ONCE .ROUTE ; Start at 08:43; Stop 01/18/18 at 08:44; Status DC Potassium Chloride 100 ml @ As Directed STK-MED ONCE .ROUTE ; Start 01/18/18 at 09:15; Stop 01/18/18 at 09:16; Status DC Sodium Chloride 1,000 ml @ 100 mls/hr Q10H IV Last administered on 01/18/18at 14 :25; Start 01/18/18 at 09:49 Cefazolin Sodium/ Dextrose 50 ml @ 100 mls/hr Q8H IV ; Start 01/18/18 at 14:00; Stop 01/18/18 at 14:45; Status DC Bisacodyl (Dulcolax Supp) 10 mg DAILY PRN RECTAL CONSTIPATION; Start 01/18/18 at 10:00 Docusate Sodium (Colace) 100 mg BID PO ; Start 01/18/18 at 21:00 Magnesium Hydroxide (Milk Of Magnesia Liq) 30 ml DAILY PRN PO CONSTIPATION; Start 01/18/18 at 10:00 Pantoprazole Sodium (Protonix) 40 mg DAILY PO ; Start 01/19/18 at 09:00 Pantoprazole Sodium (Protonix Inj) 40 mg DAILY IVP ; Start 01/19/18 at 09:00 Ondansetron HCl (Zofran Inj) 4 mg Q6H PRN IV NAUSEA OR VOMITING; Start 01/18/18 at 10:00 Acetaminophen/ Hydrocodone Bitart ([place] 10-325 Mg) 1 tab Q4H PRN PO PAIN SCALE 1 TO 5; Start 01/18/18 at 10:00 Acetaminophen/ Hydrocodone Bitart ([place] 10-325 Mg) 2 tab Q4H PRN PO PAIN SCALE 6 TO 10; Start 01/18/18 at 10:00 Morphine Sulfate (Morphine Inj) 2 mg Q2H PRN IV PUSH PAIN SCALE 1 TO 6; Start 01/18/18 at 10:00 Morphine Sulfate (Morphine Inj) 4 mg Q2H PRN IV PUSH PAIN SCALE 7 TO 10; Start 01/18/18 at 10:00 Cyclobenzaprine HCl (Flexeril) 10 mg Q8H PRN PO MUSCLE SPASM; Start 01/18/18 at 10:00 Dexamethasone Sodium Phosphate (Decadron Inj) 4 mg Q6H IV PUSH ; Start 01/18/18 at 10:00 Clonidine (Catapres) 0.1 mg Q6H PRN PO/NG SYS BP GREATER THAN 170 MMHG; Start 01/18/18 at 10:00 Acetaminophen (Tylenol) 650 mg Q4H PRN PO TEMPERATURE > 101.5 F; Start 01/18/18 at 10:00 Menthol ([place] Eduardo) 1 lozenge UNSCH PRN BUCCAL SORE THROAT; Start 01/18/18 at 10 :00 Albuterol Sulfate (Albuterol Neb) 2.5 mg Q4HR NEB PRN INH WHEEZING; Start at 10:00 Chlorhexidine Gluconate (Hibiclens 4% Top Soln) 1 applic HS TOP ; Start 01/18/18 at 21:00; Stop 01/20/18 at 21:01 Dextrose (D50w (Vial) Inj) 50 ml UNSCH PRN IV PUSH HYPOGLYCEMIA-SEE COMMENTS; Start 01/18/18 at 10:00 Glucagon (Glucagon Inj) 1 mg UNSCH PRN OTHER HYPOGLYCEMIA-SEE COMMENTS; Start 01/18/18 at 10:00 Calcium/Vitamin D (Oscal-D 250-125) 1 mg DAILY PO ; Start 01/19/18 at 09:00 Ciprofloxacin (Cipro) 250 mg BID PO ; Start 01/18/18 at 21:00 Latanoprost (Xalatan 0.005% Opth Soln) 1 drop HS LEFT EYE ; Start 01/18/18 at 21: 00 Timolol Maleate (Timoptic 0.5% Opth Soln) 1 drop BID LEFT EYE ; Start 01/18/18 at 21:00 Tizanidine HCl (Zanaflex) 2 mg TID PO ; Start 01/18/18 at 13:00 Psyllium Husk (Metamucil Fiber Sf Pkt) 1 pkt DAILY PO ; Start 01/19/18 at 09:00; Status Cancel Lactobacillus Acidophilus (Lactinex) 1 tab BID PO ; Start 01/18/18 at 21:00 Multivitamins/ Minerals Therapeutic (Theragran M Tab) 1 tab DAILY PO ; Start 01/19/18 at 09:00 Psyllium Husk (Metamucil Fiber Sf Pkt) 1 pkt DAILY PRN PO CONSTIPATION; Start 01/18/18 at 10:00 Pravastatin Sodium (Pravachol) 80 mg HS PO ; Start 01/18/18 at 21:00 Fentanyl Citrate (fentaNYL INJ) 200 mcg STK-MED ONCE .ROUTE ; Start 01/18/18 at 10:44; Stop 01/18/18 at 10:45; Status DC Midazolam HCl (Versed Inj) 4 mg STK-MED ONCE .ROUTE ; Start 01/18/18 at 10:45; Stop 01/18/18 at 10:46; Status DC Ketamine HCl (Ketalar Inj) 500 mg STK-MED ONCE .ROUTE ; Start 01/18/18 at 10:45; Stop 01/18/18 at 10:46; Status DC Propofol 100 ml @ As Directed STK-MED ONCE .ROUTE ; Start 01/18/18 at 10:45; Stop 01/18/18 at 10:46; Status DC Fentanyl Citrate (fentaNYL INJ) 100 mcg STK-MED ONCE .ROUTE ; Start 01/18/18 at 10:45; Stop 01/18/18 at 10:46; Status DC Cefazolin Sodium (Ancef Inj) 2,000 mg ONCE ONCE IV ; Start 01/18/18 at 11:04; Stop 01/18/18 at 11:15; Status DC Thrombin (Thrombin Top Soln) 10,000 units STK-MED ONCE .ROUTE Last administered on 01/18/18at 11:15; Start 01/18/18 at 11:12; Stop 01/18/18 at 11:13; Status DC Gelatin (Gelfoam Powder Pack) 1 gm STK-MED ONCE .ROUTE Last administered on 01/18at 11:15; Start 01/18/18 at 11:12; Stop 01/18/18 at 11:13; Status DC Bisoprolol Fumarate/HCTZ (Ziac 10-6.25 Mg) 1 tab DAILY PO ; Start 01/19/18 at 09: 00 Fentanyl Citrate (fentaNYL INJ) 100 mcg STK-MED ONCE .ROUTE ; Start 01/18/18 at 14:10; Stop 01/18/18 at 14:11; Status DC Cefazolin Sodium/ Dextrose 50 ml @ 100 mls/hr Q8H IV ; Start 01/18/18 at 18:00; Stop 01/19/18 at 10:29 Family History Father with history of cancer. Mother with Alzheimer's and heart disease in brother. Social History Smoker Physical Exam Vital Signs Vital Signs Date Time Temp Pulse Resp B/P (MAP) Pulse Ox O2 Delivery O2 Flow Rate FiO2 01/18/18 14:30 79 18 103/52 (69) 96 Nasal Cannula 2 01/18/18 14:15 77 18 120/57 (78) 96 Nasal Cannula 2 01/18/18 14:00 82 15 121/57 (78) 96 Nasal Cannula 2 01/18/18 13:55 98.6 82 16 120/59 (79) 100 Simple Mask 6 01/18/18 07:33 97.7 59 20 104/45 (64) 97 Physical Exam HEENT/Neuro: Pallor present. No icterus, tongue moist, PHOEBE, Awake alert oriented 3, nonfocal grossly, moving all 4 extremities Neck: No JVD Chest/pulmonary: CTA bilaterally Cardiovascular: S1-S2 regular no gallop or murmur GI/abdomen: Soft, nontender, bowel sounds present Extremities: Warm bilaterally, no edema Laboratory Laboratory Tests Test 01/18/18 07:30 Urine Color YELLOW Urine Turbidity CLEAR Urine pH 6.5 Urine Specific [place] 1.023 Urine Protein 30 Urine Glucose (UA) NEG Urine Ketones NEG Urine Occult Blood NEG Urine Nitrite NEG Urine Bilirubin NEG Urine Urobilinogen LESS THAN 2.0 Urine Leukocyte Esterase SMALL Urine RBC 1 Urine WBC 5 Urine Squamous Epithelial Cells 5 Urine Calcium Oxalate Crystals RARE Urine Mucus FEW Microscopic Urinalysis Comment CATH-CULT NOT IND Imaging Last Impressions Cervical Spine X-Ray 01/18/18 0000 Signed Impressions: Service Date/Time: Thursday, January 18, 2018 10:00 - CONCLUSION: Good position and alignment on this postoperative study. Damian Han MD Assessment and Plan Assessment and Plan 77-year-old female with: Cervical myelopathy with severe spinal stenosis status post C4 corpectomy, C3- C5 arthrodesis Hypertension Hyperlipidemia History of DVT Anxiety/depression Arthritis Plan: Neuro: Status post C4 corpectomy, C3-C5 arthrodesis/ACDF postop day 0, being followed by Dr. Coles. Pain medications per neurosurgery. Follow neuro status. Cardiovascular: IV hydration, watch for hypotension. Bisoprolol/HCTZ resumed. Pulmonary: Supplemental O2, bronchodilators as needed. GI/liver: Advance p.o. when okay with neurosurgery. Renal/: IV hydration, strict intake output, monitor and replete electrolytes, follow BUN/creatinine. ID: Antibiotic prophylaxis per Dr. Coles Endocrine: Watch for hypoglycemia, SSI for glycemic control if needed. Prophylaxis: PPI/SCDs. Subcu heparin when okay with neurosurgery. Critical care will continue to follow. Kentrell Quach MD January 18, 2018 15:13
[2018-01-18 16:00] VITALS: BP 110/54; PULSE 66; RESP 23; TEMP 98.9; O2SAT 95
--- NOTE | 2018-01-18 16:30 | PD.OP ---
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 She failed to improve with conservative nonsurgical management A proper surgical decompression could not be achieved by performing an anterior cervical discectomy and a corpectomy and arthrodhesis were indicated. The [id number] details of the procedure, indications, alternatives, risks and potential complications were fully discussed with the patient. The patient fully understood. All The questions were answered. No guarantees were given. The patient voiced requesting the procedure and provided informed consents. The patient was offered the alternative of delaying the procedure and continuing with nonsurgical management. DETAILS OF THE SURGICAL PROCEDURE After the induction of general anesthesia, endotracheal intubation was performed. Electrodes were placed for electrophysiological monitoring of the somatosensorial evoked potentials, EMG, laryngeal nerve EMG, and motor evoked potentials prior to the intubation and kept thorough the procedure. A Uribe catheter, bilateral CLAUDIA hose, and sequential compression devices were placed and kept throughout the procedure. The patient was positioned supine on a Geronimo table with the head over a gel doughnut. All pressure points were carefully padded with eggcrate mattress. The eyes were tapped shut after ointment was applied by the anesthesiologist to prevent corneal abrasion. A Luna hugger was placed over the exposed lower body to maintain control of the core body temperature. The electrophysiological team placed the needles and electrodes in their proper location and baseline SSEP's and motor evoked potentials were registered. The anterior cervical region was prepped and draped in the usual sterile fashion. A localizing x-ray was performed with a C- arm. Surgical exposure A skin incision was made along the superior cervical crease with a #10 blade. The dissection was carried out through the platysma exposing the sternocleidomastoid. The cervical spine was approached following the fascial layers of the neck just medial to the anterior border of the sternocleidomastoid and carotid sheath by a combination of sharp and dull dissection. The omohyoid muscle was identified and carefully dissected laterally and the deep cervical fascia was carefully opened. The longus colli muscles were retracted to each side of the midline. A cervical marker was placed at the disk space C4-5 and a cross-table lateral x-ray performed with a C -arm. An anterior osteophytic spur was carefully removed, and a self-retaining retractor was placed underneath the longus colli muscle. Corpectomy At this point in the procedure the operating microscope was draped in the usual sterile fashion and brought to the field. The rest of the surgical procedure was performed using microdissection technique with the exception of the closure. A micro discectomy was initially performed at C3-4, and C4-5, the superior and inferior disks adjacent to the corpectomy. The corpectomy was then drilled with the TPS drill and the bones obtained were saved for use during the fusion. The mass affect on the anterior surface of the dural sac was carefully relieved by drilling with a TPS drill under high magnification. A complete resection of the vertebral body was achieved. The posterior longitudinal ligament was thickened and hyperthrophic with calcification, causing severe compression of the spinal cord. It was elevated with an angled curet and removed with a thin footplate 2 mm Kerrison. A bilateral foraminotomy was performed with a Kerrison. The epidural space was assessed with a nerve hook. Interbody arthrodhesis The incision was then irrigated with a large amount of antibiotic solution and the endplates were evenly decorticated with a TPS drill in preparation for the interbody arthrodesis. The interbody arthrodesis was then preformed by carefully impacting a Titanium Mesh cage filled with autologous bone graft to the corpectomy space, and excellent position of the cage was achieved which was confirmed anatomically by feeling the epidural space with a nerve root and radiologically with the C-arm. Instrumental fixation Then, a Hallmark plate was brought to the field and secured with 14 mm screws. A reasonable purchase was achieved with all screws and the position of the cage , plate and screws, and alignment of the spine was assessed radiologically with the C-arm. Closure The incision was irrigated with antibiotic solution. Hemostasis was achieved with a bipolar. The screws were locked to prevent backing out. A 7 mm Geronimo- Casiano drain was left in the prevertebral space and externalized through a separate stab incision. The incision was then closed in layers. 3-0 Vicryl with interrupted sutures was used to close the platysma and subcutaneous tissue. The skin was closed with 4-0 running subcuticular Vicryl and Dermabond was applied to the skin. The drain was secured with a 3-0 nylon. At the end of the procedure the sponge, needle and instrument counts were all correct. The estimated blood loss was 100 cc. No blood transfusion was given. No intraoperative complications occurred. The patient received prophylactic antibiotics. The patient was then extubated and transferred to the recovery room in stable condition. Roland Coles MD January 18, 2018 16:30
[2018-01-18 16:45] VITALS: PULSE 70
[2018-01-18 18:00] VITALS: PULSE 69
[2018-01-18 20:00] VITALS: BP 114/56; PULSE 64; RESP 18; TEMP 97.5; O2SAT 93
[2018-01-18] MEDS: CHLORHEXIDINE GLUCONATE 4% SOLN 120 ML BTL TOP SCH (21:00)
[2018-01-18] MEDS: ceFAZolin 2 GM PREMIX 50 ML IV SCH (21:15)
[2018-01-18] MEDS: PRAVASTATIN SOD 80 MG TAB PO SCH (21:17)
[2018-01-18] MEDS: LACTOBACILLUS ACIDOPHILUS TAB PO SCH (21:17)
[2018-01-18] MEDS: DOCUSATE SODIUM 100 MG CAP PO SCH (21:18)
[2018-01-18 22:00] VITALS: PULSE 62
[2018-01-18] MEDS: TIMOLOL MALEATE 0.5% OPHT SOLN 5 ML BTL LEFT EYE SCH (22:00)
[2018-01-18] MEDS: LATANOPROST 0.005% OPHT SOLN 2.5 ML BTL LEFT EYE SCH (22:01)
[2018-01-18] MEDS: CIPROFLOXACIN 250 MG TAB PO SCH (22:01)
[2018-01-19] VITALS (9 sets, daily range): BP systolic 91–111; BP diastolic 48–56; PULSE 46–68; RESP 15–18; TEMP 97.5–98.3; O2SAT 93–100
[2018-01-19] MEDS: DEXAMETHASONE SOD PHOS 4 MG/ML VIAL IV PUSH SCH ×4 (05:25→21:37)
[2018-01-19] MEDS: ceFAZolin 2 GM PREMIX 50 ML IV SCH ×2 (05:25→13:34)
[2018-01-19] MEDS: SODIUM CHLOR 0.9% 1000 ML INJ 1,000 ML IV SCH ×3 (05:49→15:49)
[2018-01-19] MEDS: PANTOPRAZOLE SODIUM 40 MG VIAL IVP SCH (09:00)
[2018-01-19] MEDS: CALCIUM/VITAMIN D 250 MG/125 U TAB PO SCH (09:00)
[2018-01-19] MEDS ORDERED: PSYLLIUM HUSK SF 3.4 GM in 5.8 GM PKT PO SCH (09:00)
[2018-01-19] MEDS: HYDROCHLOROTHIAZIDE 25 MG TAB PO SCH (09:00)
[2018-01-19] MEDS: LACTOBACILLUS ACIDOPHILUS TAB PO SCH ×2 (09:26→21:34)
[2018-01-19] MEDS: PANTOPRAZOLE SOD 40 MG DELAYED RELEASE TAB PO SCH (09:26)
[2018-01-19] MEDS: BISOPROLOL FUMARATE 5 MG TAB PO SCH (09:26)
[2018-01-19] MEDS: DOCUSATE SODIUM 100 MG CAP PO SCH ×2 (09:27→21:33)
[2018-01-19] MEDS: TIMOLOL MALEATE 0.5% OPHT SOLN 5 ML BTL LEFT EYE SCH ×2 (09:27→21:34)
[2018-01-19] MEDS: MULTIVITAMINS/MINERALS THERAPEUTIC TAB PO SCH (09:27)
[2018-01-19] MEDS: CIPROFLOXACIN 250 MG TAB PO SCH ×2 (09:30→21:33)
--- NOTE | 2018-01-19 10:27 | HHI.NSPN ---
(Lottie Connors) Note Status Status: Progress Note (Lottie Connors) Interval History Interval History Ms Barnett is a 77 year-old female who presented with upper extremity weakness and clinical evidence of cervical myelopathy with a central cord syndrome. She failed to improve with conservative nonsurgical management A proper surgical decompression could not be achieved by performing an anterior cervical discectomy and a corpectomy and arthrodesis were indicated. She underwent a C4 corpectomy, C3-C5 arthrodesis using Titanium cage, autologous bone graft, C3-C5 instrumental fixation using Simplicity plate and screws on January 18, 2018 for severe spinal stenosis with cord compression and central cord syndrome. 01/19: in [facility], doing well, reports moving left arm better, still weak right arm, and b/l hands. reports of dysesthesias in her hands. (Lottie Connors) Labs, Micro, & Vital Signs Results Date Time Temp Pulse Resp B/P (MAP) Pulse Ox O2 Delivery O2 Flow Rate FiO2 01/19/18 08:00 55 01/19/18 08:00 97.8 55 15 111/56 (74) 99 01/19/18 07:00 100 Nasal Cannula 2.00 01/19/18 06:00 53 01/19/18 04:00 46 01/19/18 04:00 97.5 46 18 101/50 (67) 100 01/19/18 02:00 56 01/19/18 01:14 Nasal Cannula 2.00 01/19/18 00:00 97.9 50 18 96/48 (64) 100 01/19/18 00:00 50 01/18/18 22:00 62 01/18/18 20:00 97.5 64 18 114/56 (75) 93 01/18/18 20:00 64 01/18/18 20:00 97 Nasal Cannula 2.00 01/18/18 18:00 69 01/18/18 16:45 70 01/18/18 16:00 98.9 66 23 110/54 (72) 95 01/18/18 15:45 74 18 105/57 (73) 96 Nasal Cannula 2 01/18/18 15:15 98.7 77 14 113/54 (73) 96 Nasal Cannula 2 01/18/18 15:00 76 16 112/53 (72) 94 Nasal Cannula 2 01/18/18 14:30 79 18 103/52 (69) 96 Nasal Cannula 2 01/18/18 14:15 77 18 120/57 (78) 96 Nasal Cannula 2 01/18/18 14:00 82 15 121/57 (78) 96 Nasal Cannula 2 01/18/18 13:55 98.6 82 16 120/59 (79) 100 Simple Mask 6 Constitutional Vital Signs Date Time Temp Pulse Resp B/P (MAP) Pulse Ox O2 Delivery O2 Flow Rate FiO2 01/19/18 08:00 55 01/19/18 08:00 97.8 55 15 111/56 (74) 99 01/19/18 07:00 100 Nasal Cannula 2.00 01/19/18 06:00 53 01/19/18 04:00 46 01/19/18 04:00 97.5 46 18 101/50 (67) 100 01/19/18 02:00 56 01/19/18 01:14 Nasal Cannula 2.00 01/19/18 00:00 97.9 50 18 96/48 (64) 100 01/19/18 00:00 50 01/18/18 22:00 62 01/18/18 20:00 97.5 64 18 114/56 (75) 93 01/18/18 20:00 64 01/18/18 20:00 97 Nasal Cannula 2.00 01/18/18 18:00 69 01/18/18 16:45 70 01/18/18 16:00 98.9 66 23 110/54 (72) 95 01/18/18 15:45 74 18 105/57 (73) 96 Nasal Cannula 2 01/18/18 15:15 98.7 77 14 113/54 (73) 96 Nasal Cannula 2 01/18/18 15:00 76 16 112/53 (72) 94 Nasal Cannula 2 01/18/18 14:30 79 18 103/52 (69) 96 Nasal Cannula 2 01/18/18 14:15 77 18 120/57 (78) 96 Nasal Cannula 2 01/18/18 14:00 82 15 121/57 (78) 96 Nasal Cannula 2 01/18/18 13:55 98.6 82 16 120/59 (79) 100 Simple Mask 6 (Lottie Connors) Review of Systems Respiratory: DENIES: Hemoptysis, Shortness of breath Cardiovascular: DENIES: Chest pain Neurologic: COMPLAINS OF: Localized weakness, Paresthesias (Lottie Connors) Physical Exam Ms. Barnett is alert. Speech is fluent. Cranial nerve examination: pupils equal, round and reactive to light. Cervical spine immobilized by Van Buren J collar. Surgical wound covered with Optifoam dressing, clean and dry. KURTIS drain secured. Musculoskeletal: Increased tonicity to both upper and lower extremities. 5-/5 bilateral deltoid, 4/5 biceps, triceps and firer kiln. In the lower extremities, strength is 5-/5 in lower extremities. Hoffmanns sign is positive. There is mild ankle clonus bilaterally. Mild babinski response bilaterally (Lottie Connors) Medications Current Medications Current Medications Medications (Trade) Dose Ordered Sig/Yennifer Route PRN Reason Start Time Stop Time Status Last Admin Dose Admin Lactated Ringer's 1,000 ml @ 30 mls/hr Q24H PRN IV SEE LABEL COMMENTS 01/18/18 07:30 01/21/18 07:29 01/18/18 07:54 Sodium Chloride 500 ml @ 30 mls/hr [id number] PRN IV SEE LABEL COMMENTS 01/18/18 07:30 01/21/18 07:29 Metoprolol Tartrate (Lopressor) 25 mg MEDICAL TECHNICAL WRITER PRN PO SEE LABEL COMMENTS 01/18/18 07:30 01/21/18 07:29 Povidone Iodine (Betadine 5% Antisepsis Kit) 1 applic MEDICAL TECHNICAL WRITER PRN EACH NARE SEE LABEL COMMENTS 01/18/18 07:30 01/21/18 07:29 Chlorhexidine Gluconate (Chlorhexidine 2% Cloth) 3 pack MEDICAL TECHNICAL WRITER PRN TOPICAL SEE LABEL COMMENTS 01/18/18 07:30 01/21/18 07:29 01/18/18 07:00 Vancomycin/Sodium Chloride 200 ml @ 200 mls/hr MEDICAL TECHNICAL WRITER IV 01/18/18 07:30 01/21/18 07:29 01/18/18 07:56 Sodium Chloride 1,000 ml @ 30 mls/hr Q24H IV 01/18/18 08:00 01/19/18 07:46 Sodium Chloride 1,000 ml @ 100 mls/hr Q10H IV 01/18/18 09:49 01/19/18 05:49 Bisacodyl (Dulcolax Supp) 10 mg DAILY PRN RECTAL CONSTIPATION 01/18/18 10:00 Docusate Sodium (Colace) 100 mg BID PO 01/18/18 21:00 01/19/18 09:27 Magnesium Hydroxide (Milk Of Magnesia Liq) 30 ml DAILY PRN PO CONSTIPATION 01/18/18 10:00 Pantoprazole Sodium (Protonix) 40 mg DAILY PO 01/19/18 09:00 01/19/18 09:26 Pantoprazole Sodium (Protonix Inj) 40 mg DAILY IVP 01/19/18 09:00 Ondansetron HCl (Zofran Inj) 4 mg Q6H PRN IV NAUSEA OR VOMITING 01/18/18 10:00 Acetaminophen/ Hydrocodone Bitart ([place] 10-325 Mg) 1 tab Q4H PRN PO PAIN SCALE 1 TO 5 01/18/18 10:00 Acetaminophen/ Hydrocodone Bitart ([place] 10-325 Mg) 2 tab Q4H PRN PO PAIN SCALE 6 TO 10 01/18/18 10:00 Morphine Sulfate (Morphine Inj) 2 mg Q2H PRN IV PUSH PAIN SCALE 1 TO 6 01/18/18 10:00 Morphine Sulfate (Morphine Inj) 4 mg Q2H PRN IV PUSH PAIN SCALE 7 TO 10 01/18/18 10:00 01/18/18 22:02 Cyclobenzaprine HCl (Flexeril) 10 mg Q8H PRN PO MUSCLE SPASM 01/18/18 10:00 Dexamethasone Sodium Phosphate (Decadron Inj) 4 mg Q6H IV PUSH 01/18/18 10:00 01/19/18 09:26 Clonidine (Catapres) 0.1 mg Q6H PRN PO/NG SYS BP GREATER THAN 170 MMHG 01/18/18 10:00 Acetaminophen (Tylenol) 650 mg Q4H PRN PO TEMPERATURE > 101.5 F 01/18/18 10:00 Menthol ([place] Eduardo) 1 lozenge UNSCH PRN BUCCAL SORE THROAT 01/18/18 10:00 Albuterol Sulfate (Albuterol Neb) 2.5 mg Q4HR NEB PRN INH WHEEZING 01/18/18 10:00 Chlorhexidine Gluconate (Hibiclens 4% Top Soln) 1 applic HS TOP 01/18/18 21:00 01/20/18 21:01 Dextrose (D50w (Vial) Inj) 50 ml UNSCH PRN IV PUSH HYPOGLYCEMIA-SEE COMMENTS 01/18/18 10:00 Glucagon (Glucagon Inj) 1 mg UNSCH PRN OTHER HYPOGLYCEMIA-SEE COMMENTS 01/18/18 10:00 Calcium/Vitamin D (Oscal-D 250-125) 1 mg DAILY PO 01/19/18 09:00 Ciprofloxacin (Cipro) 250 mg BID PO 01/18/18 21:00 01/19/18 09:30 Latanoprost (Xalatan 0.005% Opth Soln) 1 drop HS LEFT EYE 01/18/18 21:00 01/18/18 22:01 Timolol Maleate (Timoptic 0.5% Opth Soln) 1 drop BID LEFT EYE 01/18/18 21:00 01/19/18 09:27 Tizanidine HCl (Zanaflex) 2 mg TID PO 01/18/18 13:00 01/19/18 09:27 Lactobacillus Acidophilus (Lactinex) 1 tab BID PO 01/18/18 21:00 01/19/18 09:26 Multivitamins/ Minerals Therapeutic (Theragran M Tab) 1 tab DAILY PO 01/19/18 09:00 01/19/18 09:27 Psyllium Husk (Metamucil Fiber Sf Pkt) 1 pkt DAILY PRN PO CONSTIPATION 01/18/18 10:00 Pravastatin Sodium (Pravachol) 80 mg HS PO 01/18/18 21:00 01/18/18 21:17 Hydrochlorothiazide (Hydrodiuril) 6.25 mg DAILY PO 01/19/18 09:00 Miscellaneous Information ([facility] [place] [facility]) ALL NURSING DEPARTME... UNSCH PRN .XX SEE LABEL COMMENTS 01/18/18 13:55 01/19/18 13:54 Cefazolin Sodium/ Dextrose 50 ml @ 100 mls/hr Q8H IV 01/18/18 21:00 01/19/18 13:29 01/19/18 05:25 Bisoprolol Fumarate (Zebeta) 10 mg DAILY PO 01/19/18 09:00 01/19/18 09:26 (Lottie Connors) Medical Decision Making MDM Remarks 77 y/o female s/p C4 corpectomy, C3-C5 arthrodesis using Titanium cage, autologous bone graft, C3-C5 instrumental fixation using Simplicity plate and screws 01/18/18 for severe spinal stenosis with cord compression and central cord syndrome (Lottie Connors) Plan Plan Remarks maintain Van Buren collar, clinically stable cont KURTIS draining today start on Gabapentin 300 mg tid for dysesthesias case for dc planning to [facility] in rehab PT, OT (Lottie Connors) Attending Statement The exam, history, and the medical decision-making described in the above note were completed with the assistance of the mid-level provider. I reviewed and agree with the findings presented. I attest that I had a [id number] encounter with the patient on the same day, and personally performed and documented my assessment and findings in the medical record. (Roland Coles MD) Lottie Connors January 19, 2018 10:27 Roland Coles MD January 20, 2018 16:09
[2018-01-19] MEDS: GABAPENTIN 300 MG CAP PO SCH (16:22)
[2018-01-19] MEDS: PRAVASTATIN SOD 80 MG TAB PO SCH (21:33)
[2018-01-19] MEDS: LATANOPROST 0.005% OPHT SOLN 2.5 ML BTL LEFT EYE SCH (21:34)
[2018-01-19 22:13] LABS: BASOPHIL % 0.3 % (0.0-2.0); HEMATOCRIT 36.8 % (35.0-46.0); HEMOGLOBIN 12.1 GM/DL (11.6-15.3); LYMPH % 5.8 % (9.0-44.0); LYMPHOCYTE # 0.8 TH/MM3 (1.0-4.8); MEAN CELL VOLUME 96.1 FL (80.0-100.0); MEAN CORPUSCULAR HEMOGLOBIN 31.7 PG (27.0-34.0); MEAN PLATELET VOLUME 9.9 FL (7.0-11.0); MONO % 3.9 % (0.0-8.0); MONOCYTE # 0.6 TH/MM3 (0-0.9); PLATELET COUNT 258 TH/MM3 (150-450); RED BLOOD COUNT 3.83 MIL/MM3 (4.00-5.30); RED CELL DISTRIBUTION WIDTH 13.6 % (11.6-17.2); WHITE BLOOD COUNT 14.4 TH/MM3 (4.0-11.0)
[2018-01-19 22:30] LABS: BICARBONATE 27.6 MEQ/L (21.0-32.0); CALCIUM 8.3 MG/DL (8.5-10.1); CREATININE 1.19 MG/DL (0.50-1.00)
[2018-01-19] MEDS: CHLORHEXIDINE GLUCONATE 4% SOLN 120 ML BTL TOP SCH (23:15)
[2018-01-20 00:01] VITALS: BP 112/56; PULSE 61; RESP 17; TEMP 98; O2SAT 96
[2018-01-20] MEDS: SODIUM CHLOR 0.9% 1000 ML INJ 1,000 ML IV SCH ×3 (01:49→09:06)
[2018-01-20 04:00] VITALS: BP 110/54; PULSE 62; RESP 17; TEMP 97.7; O2SAT 94
[2018-01-20] MEDS: DEXAMETHASONE SOD PHOS 4 MG/ML VIAL IV PUSH SCH ×3 (04:32→16:00)
[2018-01-20] MEDS: PANTOPRAZOLE SODIUM 40 MG VIAL IVP SCH (07:17)
[2018-01-20 08:00] VITALS: BP 120/56; PULSE 66; RESP 16; TEMP 97.3; O2SAT 93
[2018-01-20] MEDS: BISOPROLOL FUMARATE 5 MG TAB PO SCH (09:00)
[2018-01-20] MEDS: PANTOPRAZOLE SOD 40 MG DELAYED RELEASE TAB PO SCH (09:01)
[2018-01-20] MEDS: LACTOBACILLUS ACIDOPHILUS TAB PO SCH (09:01)
[2018-01-20] MEDS: GABAPENTIN 300 MG CAP PO SCH ×2 (09:01→11:54)
[2018-01-20] MEDS: CALCIUM/VITAMIN D 250 MG/125 U TAB PO SCH (09:03)
[2018-01-20] MEDS: DOCUSATE SODIUM 100 MG CAP PO SCH (09:03)
[2018-01-20] MEDS: CIPROFLOXACIN 250 MG TAB PO SCH (09:03)
[2018-01-20] MEDS: MULTIVITAMINS/MINERALS THERAPEUTIC TAB PO SCH (09:03)
[2018-01-20] MEDS: HYDROCHLOROTHIAZIDE 25 MG TAB PO SCH (09:04)
[2018-01-20] MEDS: TIMOLOL MALEATE 0.5% OPHT SOLN 5 ML BTL LEFT EYE SCH (09:06)
[2018-01-20] MEDS ORDERED: HYDR-3516 PO (09:11)
[2018-01-20] MEDS ORDERED: MAGNESIUM CITRATE SOLN 300 ML BTL PO ONE (10:00)
[2018-01-20 11:57] VITALS: BP 107/51; PULSE 68; RESP 15; TEMP 98; O2SAT 94
--- NOTE | 2018-01-20 12:51 | HHI.DCPOC ---
Discharge Care Plan Diagnosis: (1) Status post cervical arthrodesis Goals to Promote Your Health * To prevent worsening of your condition and complications * To maintain your health at the optimal level Directions to Meet Your Goals Take your medications as prescribed Follow your dietary instruction Follow activity as directed Keep your appointments as scheduled Take your immunizations and boosters as scheduled If your symptoms worsen call your PCP, if no PCP go to Urgent Care Center or Emergency Room Smoking is Dangerous to Your Health. Avoid second hand smoke Call the 24-hour hour crisis hotline for domestic abuse at Lottie Connors January 20, 2018 12:51
--- NOTE | 2018-01-20 12:51 | HHI.DS ---
Discharge Summary Admission Date January 18, 2018 at 13:18 Discharge Date: January 20, 2018 Admitting Diagnosis Status post anterior cervical arthrodesis (1) Status post cervical arthrodesis ICD Code: Z98.1 - Arthrodesis status (2) Central cord syndrome ICD Code: S14.129A - Central cord syndrome at unspecified level of cervical spinal cord, initial encounter Brief History Ms Barnett is a 77 year-old female who presented with upper extremity weakness and clinical evidence of cervical myelopathy with a central cord syndrome. She failed to improve with conservative nonsurgical management A proper surgical decompression could not be achieved by performing an anterior cervical discectomy and a corpectomy and arthrodesis were indicated. CBC/BMP: 01/19/18211201/19/182112 Significant Findings Laboratory Tests Test 01/18/18 07:30 01/19/18 21:13 Urine Protein 30 mg/dL (NEG-TRACE) Urine Leukocyte Esterase SMALL (NEG) Urine Calcium Oxalate Crystals RARE /hpf (NONE) Urine Mucus FEW /lpf (OCC) White Blood Count 14.4 TH/MM3 (4.0-11.0) Red Blood Count 3.83 MIL/MM3 (4.00-5.30) Neutrophils (%) (Auto) 90.0 % (16.0-70.0) Lymphocytes (%) (Auto) 5.8 % (9.0-44.0) Neutrophils # (Auto) 13.0 TH/MM3 (1.8-7.7) Lymphocytes # (Auto) 0.8 TH/MM3 (1.0-4.8) Blood Urea Nitrogen 27 MG/DL (7-18) Creatinine 1.19 MG/DL (0.50-1.00) Random Glucose 153 MG/DL (74-106) Calcium Level 8.3 MG/DL (8.5-10.1) Estimat Glomerular Filtration Rate 44 ML/MIN (>89) Imaging Last Impressions Cervical Spine X-Ray 01/18/18 0000 Signed Impressions: Service Date/Time: Thursday, January 18, 2018 10:00 - CONCLUSION: Good position and alignment on this postoperative study. Damian Han MD Hospital Course Ms. Barnett underwent a C4 corpectomy, C3-C5 arthrodesis using Titanium cage, autologous bone graft, C3-C5 instrumental fixation using Simplicity plate and screws on January 18, 2018 for severe spinal stenosis with cord compression and central cord syndrome. She was recommended discharge to [place] inpatient rehabilitation, however patient refused [facility] and requests discharge back to her long term facility where she had resided prior to surgery. Pt Condition on Discharge: Stable Discharge Disposition: Discharge to SNF Discharge Instructions DIET: Follow Instructions for: Heart Healthy Diet ADDITIONAL Diet Instructions: soft food and advance as tolerated ACTIVITIES You can perform: Weight Bearing As Jeri ADDITIONAL Activity Instructio: Avoid strenuous activities, heavy lifting over 5 lbs, overhead activities, repetitive bending, twisting, pushing, pulling or any activities which might result in stress over the spine. Avoid situation that will put at risk for falls. Use assistive device as needed for walking. Wear cervical collar at all times. New Medications: Hydrocodone/Acetaminophen (Hydrocodone-Acetamin 5-325 mg) 5 Mg-325 Mg Tablet 1 TAB-CAP PO Q8HR for Pain, #30 CAP 0 Refills Continued Medications: Bisoprolol-Hydrochlorothiazide (Bisoprolol-Hydrochlorothiazide) 10-6.25 Mg Tab 1 TAB PO DAILY for Blood Pressure Management, #30 TAB 0 Refills Calcium Carbonate-Cholecalciferol (Calcium 600 with Vitamin D) 600-400 mg-Unit Tab 2 TAB PO DAILY for Calcium Supplement, TAB 0 Refills Ciprofloxacin (Cipro) 250 Mg Tab 250 MG PO BID for Infection, TAB [address] (Diclofenac Sodium DR) 75 Mg Tabdr 75 MG PO BID, #60 TAB 0 Refills Lactobacillus Rhamnosus (GG) (Culturelle) 10 Billion Cell Cap 1 CAP PO BID for Nutritional Supplement, CAP 0 Refills Latanoprost Opth Drops (Latanoprost Opth Drops) 0.005% Drops 1 DROP LEFT EYE HS for Glaucoma, #2.5 ML 0 Refills Refrigerate until opened. Multiple Vitamins W/ Minerals (Womens Daily Formula/Foli) 27 Mg-0.4 Mg Tab 27 TAB PO DAILY for Nutritional Supplement Psyllium Powder (Metamucil Smooth Texture) 3.4 Gram/12 Gram Pow 1 SCOOP PO DAILY PRN for CONSTIPATION, CONTAINER 0 Refills 1 rounded TEASPOON in 8 oz of liquid at the first sign of irregularity. Simvastatin (Simvastatin) 40 Mg Tab 40 MG PO HS for Cholesterol Management, #30 TAB 0 Refills Timolol Opth Drops (Timolol Opth Drops) 0.5 % Soln 1 DROP LEFT EYE BID for Glaucoma, #1 BOTTLE 0 Refills Tizanidine (Zanaflex) 2 Mg Cap 2 MG PO TID for Muscle Spasm, CAP 0 Refills Lottie Connors January 20, 2018 12:51
--- NOTE | 2018-01-20 13:41 | PD.CONS ---
HPI Service Rehabilitation Medicine Consult Requested By Reason for Consult Comprehensive rehabilitation evaluation. Primary Care Physician Antione Parr MD Review of Systems Constitutional: DENIES: Fatigue Eyes: DENIES: Diplopia Ears, nose, mouth, throat: DENIES: Hearing loss Respiratory: DENIES: Shortness of breath Cardiovascular: DENIES: Chest pain Gastrointestinal: DENIES: Abdominal pain, Constipation Genitourinary: DENIES: Urinary incontinence, Urgency Musculoskeletal: COMPLAINS OF: Neck pain Integumentary: DENIES: Rash Hematologic/lymphatic: DENIES: Bruising Neurologic: COMPLAINS OF: Localized weakness, Paresthesias, DENIES: Speech Problems Psychiatric: DENIES: Confusion Past Family Social History Allergies: Coded Allergies: No Known Allergies (Verified Allergy, Unknown, 01/11/18) Current Medications Current Medications Medications (Trade) Dose Ordered Sig/Yennifer Route Start Time Stop Time Status Last Admin Lactated Ringer's 1,000 ml @ 30 mls/hr Q24H PRN IV 01/18/18 07:30 01/21/18 07:29 01/18/18 07:54 Sodium Chloride 500 ml @ 30 mls/hr [id number] PRN IV 01/18/18 07:30 01/21/18 07:29 (Lopressor) 25 mg BONE CHAR KILN TENDER PRN PO 01/18/18 07:30 01/21/18 07:29 (Betadine 5% Antisepsis Kit) 1 applic BONE CHAR KILN TENDER PRN EACH NARE 01/18/18 07:30 01/21/18 07:29 (Chlorhexidine 2% Cloth) 3 pack BONE CHAR KILN TENDER PRN TOPICAL 01/18/18 07:30 01/21/18 07:29 01/18/18 07:00 Vancomycin/Sodium Chloride 200 ml @ 200 mls/hr BONE CHAR KILN TENDER IV 01/18/18 07:30 01/21/18 07:29 01/18/18 07:56 Sodium Chloride 1,000 ml @ 30 mls/hr Q24H IV 01/18/18 08:00 01/19/18 07:46 Sodium Chloride 1,000 ml @ 100 mls/hr Q10H IV 01/18/18 09:49 01/19/18 05:49 (Dulcolax Supp) 10 mg DAILY PRN RECTAL 01/18/18 10:00 (Colace) 100 mg BID PO 01/18/18 21:00 01/20/18 09:03 (Milk Of Magnesia Liq) 30 ml DAILY PRN PO 01/18/18 10:00 (Protonix) 40 mg DAILY PO 01/19/18 09:00 01/20/18 09:01 (Protonix Inj) 40 mg DAILY IVP 01/19/18 09:00 (Zofran Inj) 4 mg Q6H PRN IV 01/18/18 10:00 ([place] 10-325 Mg) 1 tab Q4H PRN PO 01/18/18 10:00 01/19/18 21:33 ([place] 10-325 Mg) 2 tab Q4H PRN PO 01/18/18 10:00 (Morphine Inj) 2 mg Q2H PRN IV PUSH 01/18/18 10:00 (Morphine Inj) 4 mg Q2H PRN IV PUSH 01/18/18 10:00 01/18/18 22:02 (Flexeril) 10 mg Q8H PRN PO 01/18/18 10:00 (Decadron Inj) 4 mg Q6H IV PUSH 01/18/18 10:00 01/20/18 09:04 (Catapres) 0.1 mg Q6H PRN PO/NG 01/18/18 10:00 (Tylenol) 650 mg Q4H PRN PO 01/18/18 10:00 ([place] Eduardo) 1 lozenge UNSCH PRN BUCCAL 01/18/18 10:00 (Albuterol Neb) 2.5 mg Q4HR NEB PRN INH 01/18/18 10:00 (Hibiclens 4% Top Soln) 1 applic HS TOP 01/18/18 21:00 01/20/18 21:01 01/19/18 23:15 (D50w (Vial) Inj) 50 ml UNSCH PRN IV PUSH 01/18/18 10:00 (Glucagon Inj) 1 mg UNSCH PRN OTHER 01/18/18 10:00 (Oscal-D 250-125) 1 mg DAILY PO 01/19/18 09:00 01/20/18 09:03 (Cipro) 250 mg BID PO 01/18/18 21:00 01/20/18 09:03 (Xalatan 0.005% Opth Soln) 1 drop HS LEFT EYE 01/18/18 21:00 01/19/18 21:34 (Timoptic 0.5% Opth Soln) 1 drop BID LEFT EYE 01/18/18 21:00 01/20/18 09:06 (Zanaflex) 2 mg TID PO 01/18/18 13:00 01/20/18 11:55 (Lactinex) 1 tab BID PO 01/18/18 21:00 01/20/18 09:01 (Theragran M Tab) 1 tab DAILY PO 01/19/18 09:00 01/20/18 09:03 (Metamucil Fiber Sf Pkt) 1 pkt DAILY PRN PO 01/18/18 10:00 (Pravachol) 80 mg HS PO 01/18/18 21:00 01/19/18 21:33 (Hydrodiuril) 6.25 mg DAILY PO 01/19/18 09:00 01/20/18 09:04 (Zebeta) 10 mg DAILY PO 01/19/18 09:00 01/20/18 09:00 (Neurontin) 300 mg TID PO 01/19/18 18:00 01/20/18 11:54 Exam I&O / VS 01/20/18 01/20/18 01/21/18 15:00 23:00 07:00 Output Total 200 ml Balance -200 ml Output Urine Total 200 ml Vital Signs Date Time Temp Pulse Resp B/P (MAP) Pulse Ox O2 Delivery O2 Flow Rate FiO2 01/20/18 11:57 98.0 68 15 107/51 (69) 94 01/20/18 08:00 97.3 66 16 120/56 (77) 93 01/20/18 07:20 Room Air 01/20/18 04:00 97.7 62 17 110/54 (72) 94 01/20/18 00:01 98.0 61 17 112/56 (74) 96 01/19/18 20:26 96 Nasal Cannula 2.00 01/19/18 20:00 98.3 65 16 111/52 (71) 97 01/19/18 16:07 98.3 68 18 99/51 (67) 93 General: No acute distress, Other ( at bedside) Respiratory: Lungs CTA, Non-labored respirations, BS equal Gastrointestinal: Positive Bowel Sounds, Distended (Soft/depressible), Non- Tender Cardiovascular: Normal rate, No edema, Regular Rhythm Musculoskeletal: No calf tenderness Psychiatric: Cooperative, Appropriate mood & affect Orientation: oriented to Self, oriented to Place, oriented to Time, oriented to Situation Neurologic: Cranial Nerves (Intact 2 through 12), Speech (Clear), Other ( Cervical collar in place) Motor: Right Upper Extremity (4+/5), Left Upper Extremity (4/5), Right Lower Extremity ( 4+/5), Left Lower Extremity (4+/5) Sensory Decreased but present in the upper and intact in lower extremities Clonus: Positive (1-2 beats at the ankles) Balance: Sitting (Sitting balance is good) Assessment and Plan Diagnosis: (1) Central cord syndrome ICD Codes: S14.129A - Central cord syndrome at unspecified level of cervical spinal cord, initial encounter Qualifiers: Encounter type: initial encounter Qualified Codes: S14.129A - Central cord syndrome at unspecified level of cervical spinal cord, initial encounter (2) Status post cervical arthrodesis ICD Codes: Z98.1 - Arthrodesis status Plan 1. Patient is progressing with mobility and now moderate assistance of 2 for transfers with physical therapy. Gait training using lift system is being provided 2. OT is addressing ADLs and patient is currently dependent 3. SCDs are in place for DVT prophylaxis 4. Continue close supervision for fall prevention 5. Spasticity appears to be adequately controlled with current dosing of tizanidine 6. Case management is addressing discharge planning and transfer to long term facility planned for today. Patient returning to facility where she was receiving services after right knee replacement November 2017 7. Will follow while hospitalized and at discharge Thank you for this consult Dayana Neal MD January 20, 2018 13:41
== END 2018-01-20 17:05 | DRG 471 ==
LOC: HSDC 06:28 → HSDI 09:52 → OBSVTOIN 13:18 → N03A 16:19 → N06A 01-19 13:54
PROVIDERS: ADMIT Neurological Surgery; ATTEND Neurological Surgery
PROC: 0RT30ZZ Resection of Cervical Vertebral Disc, Open Approach (ICD-10-PCS; 2018-01-18)
PROC: 4A11X4G Monitoring of Peripheral Nervous Electrical Activity, Intraoperative, External Approach (ICD-10-PCS; 2018-01-18)
PROC: 0RG20A0 Fusion of 2 or more Cervical Vertebral Joints with Interbody Fusion Device, Anterior Approach, Anterior Column, Open Approach (ICD-10-PCS; principal; 2018-01-18 08:39)
DX: M48.02 Spinal stenosis, cervical region (principal); S14.123A Central cord syndrome at C3 level of cervical spinal cord, initial encounter; M50.01 Cervical disc disorder with myelopathy, high cervical region; E78.5 Hyperlipidemia, unspecified; I10 Essential (primary) hypertension; M19.90 Unspecified osteoarthritis, unspecified site; F32.9 Major depressive disorder, single episode, unspecified; F41.9 Anxiety disorder, unspecified; F17.200 Nicotine dependence, unspecified, uncomplicated; Z96.651 Presence of right artificial knee joint; Z86.718 Personal history of other venous thrombosis and embolism; Z85.820 Personal history of malignant melanoma of skin
CPT/HCPCS: 72040; 76000; 80048; 81001; 82948; 85025; 88305; 88311; C1713; J0690; J1100; J1580; J2250; J2270; J2370; J2405; J3010; J3370; J3480; J7030; J7040; J7050; J7120; L0150; L0172